=== PATIENT | female | born 1945 | race Caucasian/White ===

== ENCOUNTER → 2017-02-19 | Outpatient (CLI) | payer MEDICARE ==
[2017-02-19 12:20] LABS: CH 29.1; CHCM 32.1; HCT 46.6 % (34.0-46.0); HDW 2.58; HGB 15.8 gm/dL (11.4-16.0); MCH 30.9 pg (25.0-35.0); MCHC 33.9 g/dL (31.0-37.0); MCV 91.1 fL (80.0-100.0); Mean Platelet Volume 7.4; RBC 5.12 m/uL (3.80-5.40); RDW 15.2 % (11.5-15.5); WBC 16.7 k/uL (3.8-10.6)
[2017-02-19 12:38] LABS: Anion Gap 10 mmol/L; Blood Urea Nitrogen 18 mg/dL (7-17); Carbon Dioxide 23 mmol/L (22-30); Chloride 107 mmol/L (98-107); Non-African American GFR(MDRD) >60 (>60 ml/min/1.73 sqM); Potassium 4.4 mmol/L (3.5-5.1); Sodium 140 mmol/L (137-145)
== END | disposition home or self-care (01) ==
LOC: LABPAT 11:46
PROVIDERS: ATTEND Internal Medicine Interventional Cardiology
DX: Z01.812 Encounter for preprocedural laboratory examination (principal); I73.9 Peripheral vascular disease, unspecified
CPT/HCPCS: 80051; 82565; 84520; 85027

== ENCOUNTER 2017-02-24 06:28 | Inpatient (IN) | payer MEDICARE ==
[2017-02-19 14:07] VITALS: BMI 40.9
[~2017-02-24 06:28] MED LIST: ALPRAZolam 0.25 MG TAB PO PRN; ASPIRIN 325 MG TAB PO STA; SODIUM CHLORIDE 0.9% 1,000 ML in EMPTY BAG 1 BAG IV ONE
[2017-02-24] MEDS ORDERED: MIDAZOLAM 2 MG/2 ML VIAL IV ONE (07:51)
[2017-02-24] MEDS ORDERED: ENALAPRILAT 1.25 MG/ML 1 ML VIAL IV ONE (07:56)
[2017-02-24] MEDS ORDERED: LIDOCAINE 2% INJ 20 MG/ML SQ ONE (07:56)
[2017-02-24] MEDS: hydrALAZINE HCL 20 MG/ML 1 ML VIAL IV ONE ×2 (08:01→08:10)
[2017-02-24] MEDS ORDERED: IODIXANOL 320 MG/ML 100 ML INTRAARTER ONE (08:10)
[2017-02-24] MEDS ORDERED: METOPROLOL TARTRATE 5 MG/5 ML VIAL IVP ONE ×2 (08:24→12:17)
[2017-02-24] MEDS ORDERED: SODIUM CHLORIDE 0.9% 1,000 ML IV SCH ×2 (08:30→14:15)
[2017-02-24] MEDS ORDERED: FUROSEMIDE 10 MG/ML 4 ML VIAL IV ONE (08:31)
[2017-02-24] MEDS ORDERED: hydrALAZINE HCL 20 MG/ML 1 ML VIAL IVP STA ×2 (09:12→11:01)
[2017-02-24] MEDS ORDERED: hydrALAZINE HCL 20 MG/ML 1 ML VIAL ONE (09:14)
--- NOTE | 2017-02-24 10:47 | IR ---
Fluoroscopy HISTORY: Peripheral vascular disease with left leg 1.7 minutes fluoroscopy time supplied to the referring clinician. 206 intraoperative C-arm images do cument the procedure. See dictated report from cardiology.
[2017-02-24] MEDS ORDERED: ENALAPRILAT 1.25 MG/ML 1 ML VIAL IVP STA (11:01)
--- NOTE | 2017-02-24 12:39 | PCN ---
DATE OF SERVICE: February 24, 2017 PERFORMING PHYSICIAN: Reyes Cazares MD, litharge mill operator. PROCEDURE PERFORMED: 1. Abdominal aortogram. 2. Bilateral lower extremity runoff. INDICATIONS: This is a very pleasant 72-year-old female patient who sees Dr. José Miguel Hassan as an outpatient who was experiencing critical limb ischemia and nonhealing ulcer involving the left foot. She was brought today for peripheral angiogram. She underwent an arterial duplex study and that came in to be abnormal. APPROACH: Right common femoral artery. COMPLICATIONS: None. LEVEL OF SEDATION: Moderate. The sedation length 17 minutes. PROCEDURE DESCRIPTION: After obtaining an informed consent, the patient was brought to the cardiac agriculture laborer. The right common femoral artery was cannulated using micropuncture technique and the micropuncture wire passed easily then I placed a 5 Tristanian sheath in the right common femoral artery. Subsequently, I did an abdominal aortogram and bilateral lower extremity runoff. Using 5 Tristanian pigtail catheter, which was initially placed at the level of the renal arteries then it was pulled into above the bifurcation of the aorta to right and left common iliac arteries. The procedure was completed without any complication. SELECTIVE PERIPHERAL ANGIOGRAM: 1. The aorta has mild disease only. 2. Common iliac arteries: The right and left common iliac arteries are angiographically normal. 3. Internal iliac arteries: The right and left internal iliac arteries are patent. 4. External iliac arteries: The right external iliac arteries appear to have mild disease only and the left external iliac artery appeared to have a tight lesion just above the inguinal ligament. The lesion seems to be in the range of 70% to 80%. 5. Common femoral arteries: The right and left common femoral arteries appear to have mild disease only. 6. SFA: The right SFA is patent and the left SFA is occluded in the proximal portion and reconstitutes just in the distal portion. 7. Popliteal: The right and left popliteal appear to have mild disease only. 8. Below the knee: There are 3 vessels runoff below the knee bilaterally. CONCLUSION: 1. 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 2. Occluded left superficial femoral artery in the proximal portion and reconstitutes in the mid portion. POSTPROCEDURE MANAGEMENT: LABOR SUPERVISOR of the left external iliac artery and subsequently LABOR SUPERVISOR of the left SFA. [facility]
[2017-02-24] MEDS ORDERED: cloNIDine HCL 0.1 MG TAB PO STA ×2 (12:53→13:27)
[2017-02-24] MEDS ORDERED: amLODIPine 5 MG TAB PO STA (13:25)
[2017-02-24] MEDS ORDERED: HYDROmorphone 1 MG/ML 1 ML SYRINGE IVP STA (13:28)
[2017-02-24] MEDS ORDERED: LOSARTAN 50 MG TAB PO ONE (13:45)
[2017-02-24] MEDS ORDERED: FUROSEMIDE 10 MG/ML 2 ML VIAL IV ONE (13:46)
[2017-02-24] MEDS ORDERED: HYDROmorphone 1 MG/ML 1 ML SYRINGE IVP ONE (23:58)
[2017-02-25] MEDS ORDERED: RX INFO: IV CONTRAST WAS GIVEN 1 EACH MISC MISCELLANE PRN (06:49)
[2017-02-25 08:39] LABS: ALT 25 U/L (9-52); AST 23 U/L (14-36); Alkaline Phosphatase 172 U/L (38-126); Anion Gap 11 mmol/L; Blood Urea Nitrogen 25 mg/dL (7-17); Calcium 8.7 mg/dL (8.4-10.2); Carbon Dioxide 25 mmol/L (22-30); Chloride 106 mmol/L (98-107); Glucose 94 mg/dL (74-99); Non-African American GFR(MDRD) >60 (>60 ml/min/1.73 sqM); Potassium 3.9 mmol/L (3.5-5.1); Sodium 142 mmol/L (137-145); Total Bilirubin 1.8 mg/dL (0.2-1.3); Total Protein 6.8 g/dL (6.3-8.2)
[2017-02-25] MEDS ORDERED: methylPREDNISolone SOD SUCCI 125 MG/2 ML VIAL IV ONE (10:30)
[2017-02-25] MEDS ORDERED: FAMOTIDINE 20 MG/2 ML VIAL IV ONE (10:30)
[2017-02-25] MEDS ORDERED: diphenhydrAMINE 50 MG/ML 1 ML VIAL IVP ONE (10:30)
--- NOTE | 2017-02-25 11:57 | CT ---
EXAMINATION TYPE: CT angio chest DATE OF EXAM: 02/25/2017 COMPARISON: NONE HISTORY: SOB, pain CT DLP: 456.8 mGycm Automated exposure control for dose reduction was used. CONTRAST: CTA scan of the thorax is performed with IV Contrast, patient injected with 100 mL of Omnipaque 350, pulmonary embolism protocol. MIP images are created and reviewed. 3D reconstructed images are creat ed on an independent workstation and reviewed. FINDINGS: LUNGS: The lungs are remarkable for abnormal increased attenuation which is pleural-based in the left upper lobe, some prominence of interstitium also present in the left upper lobe and lingula. Right l amy shows emphysematous changes, some increased density present in the right middle lobe is pleural-b ased anteriorly in the right measuring approximately 12 mm. Right lower lobe lung nodule on image 73 measures 8 mm. Left lower lobe nodularity also seen, image #85 and 86, subcentimeter nodule noted. In terstitial changes also noted on the right. There is a small left pleural effusion. The tracheobronc hial tree is patent. AORTA: No additional significant abnormality is seen. MEDIASTINUM: There is satisfactory enhancement of the pulmonary artery and its branches, there is no CT evidence for pulmonary embolism. There are abnormal nodes in the prevascular space, retrocaval pr etracheal mediastinal nodes are enlarged, there is bilateral hilar, subcarinal adenopathy. Pulmonary artery is prominent. There are coronary artery calcifications, calcification along the aorta. No pe ricardial effusion is seen. OTHER: No additional significant abnormality is seen. Findings could represent metastatic disease, bronchogenic carcinoma. Consider pulmonary artery hypert ension, centrilobular emphysema change is present. Coronary artery disease, small left pleural effusi on. IMPRESSION:
[2017-02-25] MEDS ORDERED: FUROSEMIDE 40 MG TAB PO PRN (15:03)
[2017-02-25] MEDS ORDERED: FAMOTIDINE 20 MG TAB PO PRN (15:03)
[2017-02-25] MEDS ORDERED: ALBUTEROL NEBULIZED 2.5 MG/3 ML INHALATION PRN (15:03)
[2017-02-25] MEDS ORDERED: predniSONE 20 MG TAB PO PRN (15:03)
[2017-02-25] MEDS ORDERED: hydrOXYzine HCL 25 MG TAB PO PRN (15:03)
[2017-02-25] MEDS: cloNIDine HCL 0.1 MG TAB PO SCH ×2 (15:50→23:39)
[2017-02-25] MEDS: LOSARTAN 50 MG TAB PO SCH ×2 (15:50→21:40)
[2017-02-25] MEDS ORDERED: amLODIPine 5 MG TAB PO STA (18:54)
[2017-02-25] MEDS ORDERED: METOPROLOL SUCCINATE (ER) 100 MG TAB.ER.24H PO SCH (19:00)
[2017-02-25] MEDS ORDERED: LEVOFLOXACIN 500MG-D5W PMX 500 MG in DEXTROSE/WATER 1 100ML.BAG IVPB SCH (20:00)
[2017-02-25] MEDS ORDERED: BUDESONIDE 1 MG/2 ML NEBU INHALATION SCH (21:00)
[2017-02-25] MEDS ORDERED: diphenhydrAMINE 25 MG CAP PO SCH (21:00)
[2017-02-25] MEDS ORDERED: MONTELUKAST 10 MG TAB PO SCH (21:00)
[2017-02-25] MEDS: BUDESONIDE 0.5 MG/2 ML NEBU INHALATION SCH (21:21)
[2017-02-25] MEDS: DULoxetine HCL 30 MG CAPSULE.DR PO SCH (21:40)
[2017-02-25] MEDS: TIMOLOL 0.5% OPHTH DROPS 5 ML BTL BOTH EYES SCH (21:40)
[2017-02-26] MEDS ORDERED: HYDROmorphone 1 MG/ML 1 ML SYRINGE IVP PRN (03:07)
[2017-02-26 07:27] LABS: CH 29.1; CHCM 32.6; HCT 52.3 % (34.0-46.0); HDW 2.55; HGB 17.3 gm/dL (11.4-16.0); MCH 29.6 pg (25.0-35.0); MCV 89.6 fL (80.0-100.0); Mean Platelet Volume 7.2; RBC 5.84 m/uL (3.80-5.40); RDW 14.9 % (11.5-15.5); WBC (Perox) 30.16
[2017-02-26 07:36] LABS: WBC 29.8 k/uL (3.8-10.6)
[2017-02-26] MEDS: BUDESONIDE 0.5 MG/2 ML NEBU INHALATION SCH (07:43)
--- NOTE | 2017-02-26 08:22 | P.DS ---
Providers Date of admission: February 242016 Attending physician: Reyes Cazares Consults: 02/25/17 15:42 Consult Physician Routine Consulting Provider: Juan Hassan Consult Reason/Comments: abnormal ct Do you want consulting provider notified?: Yes Primary care physician: Stated None Hospital Course: This is a pleasant 72-year-old female patient who was admitted to the hospital 2 days ago to undergo a peripheral angiogram. The patient is a patient of Dr. JUDY Hassan who was experiencing severe left leg discomfort consistent with intermittent claudication.. She underwent a peripheral angiogram and that showed an occluded left SFA from the ostium and reconstitutes by the left popliteal. Postprocedure the patient developed hypertension required multiple doses of IV hydralazine as well as IV Vasotec. Subsequently she was hypoxic requiring 2 L of oxygen. Pulmonary consult was placed yesterday and the patient was diagnosed with a pneumonia and she was kept overnight. On follow-up with her today she is feeling better. The white count is elevated. We are still awaiting for the pulmonary follow-up on her today. If the patient is stable from the pulmonary standpoint of view, she can be discharged home. Plan - Discharge Summary New Discharge Prescriptions: Continue diphenhydrAMINE [Benadryl] 25 mg PO HS Nitroglycerin Sl Tabs [Nitrostat] 0.4 mg SL Q5M PRN PRN Reason: Chest Pain Metoprolol Succinate (ER) [Toprol XL] 100 mg PO 1900 Betaxolol HCl [Betoptic S 0.5% Ophth Soln] 1 drop BOTH EYES BID Aspirin 325 mg PO DAILY cloNIDine HCL [Catapres] 0.1 mg PO TID Furosemide [Lasix] 40 mg PO DAILY PRN PRN Reason: leg swelling Budesonide [Pulmicort] 0.5 mg INHALATION BID hydrOXYzine HCL [Atarax] 25 mg PO Q6HR PRN PRN Reason: Itching Losartan [Cozaar] 50 mg PO DAILY Albuterol Sulfate [Proair Hfa] 1 - 2 puff INHALATION Q6HR PRN PRN Reason: sob diphenhydrAMINE [Benadryl] 25 mg PO Q4H PRN PRN Reason: hives ALPRAZolam [Xanax] 0.25 mg PO DAILY PRN PRN Reason: hives Montelukast Sodium [Singulair] 10 mg PO HS DULoxetine HCL [Cymbalta] 30 mg PO BID predniSONE 20 mg PO DIRECTED PRN PRN Reason: Allergic Reaction Ranitidine HCl [Zantac] 150 mg PO DIRECTED PRN PRN Reason: Allergic Reaction Discharge Medication List Aspirin 325 mg PO DAILY 02/14/14 [History] Betaxolol HCl [Betoptic S 0.5% Ophth Soln] 1 drop BOTH EYES BID 02/14/14 [ History] Metoprolol Succinate (ER) [Toprol XL] 100 mg PO 1900 02/14/14 [History] Nitroglycerin Sl Tabs [Nitrostat] 0.4 mg SL Q5M PRN 02/14/14 [History] cloNIDine HCL [Catapres] 0.1 mg PO TID 02/14/14 [History] diphenhydrAMINE [Benadryl] 25 mg PO HS 02/14/14 [History] Budesonide [Pulmicort] 0.5 mg INHALATION BID 08/15/14 [History] Furosemide [Lasix] 40 mg PO DAILY PRN 08/15/14 [History] Losartan [Cozaar] 50 mg PO DAILY 08/15/14 [History] hydrOXYzine HCL [Atarax] 25 mg PO Q6HR PRN 08/15/14 [History] ALPRAZolam [Xanax] 0.25 mg PO DAILY PRN 02/19/17 [History] Albuterol Sulfate [Proair Hfa] 1 - 2 puff INHALATION Q6HR PRN 02/19/17 [History] DULoxetine HCL [Cymbalta] 30 mg PO BID 02/19/17 [History] Montelukast Sodium [Singulair] 10 mg PO HS 02/19/17 [History] diphenhydrAMINE [Benadryl] 25 mg PO Q4H PRN 02/19/17 [History] Ranitidine HCl [Zantac] 150 mg PO DIRECTED PRN 02/24/17 [History] predniSONE 20 mg PO DIRECTED PRN 02/24/17 [History] Follow up Appointment(s)/Referral(s): Reyes Cazares MD [STAFF PHYSICIAN] - 1 Week Juan Hassan MD [STAFF PHYSICIAN] - 07/18/17 3:45 pm Activity/Diet/Wound Care/Special Instructions: Oxygen ordered through [facility]: #[phone]
[2017-02-26] MEDS ORDERED: amLODIPine 5 MG TAB PO SCH (09:00)
[2017-02-26] MEDS ORDERED: ASPIRIN 325 MG TAB PO SCH (09:00)
[2017-02-26] MEDS: DULoxetine HCL 30 MG CAPSULE.DR PO SCH (09:40)
[2017-02-26] MEDS: cloNIDine HCL 0.1 MG TAB PO SCH (09:40)
[2017-02-26] MEDS: TIMOLOL 0.5% OPHTH DROPS 5 ML BTL BOTH EYES SCH (09:41)
[2017-02-26] MEDS: LOSARTAN 50 MG TAB PO SCH (09:41)
[2017-02-26 10:17] LABS: Add Differential Manual Differential
[2017-02-26 10:20] LABS: Manual Review Performed; Metamyelocytes % 0.5 %; Nucleated Red Blood Cells 0 /100 WBC (0-0); Total Cells Counted 200
[2017-02-26 10:21] LABS: Toxic Granulation Present
[2017-02-26 11:38] VITALS: BP 176/63; PULSE 58; RESP 17; TEMP 98.6
--- NOTE | 2017-02-26 12:36 | CONS ---
Della Gregory is a 72-year-old female who presented to the hospital on 2016. She underwent abdominal aortogram with bilateral lower extremity runoff. She had been having pleuritic chest pain that started on 02/21/2017. She felt somewhat weak at the time. No clear fever or chills. She had a CT scan done, which showed evidence of an extensive infiltrate in the left upper lobe and lingula with some lymphadenopathy as well. She has a known history of CLL. Her past medical history is positive for asthma, COPD, coronary artery disease, status post coronary angioplasty, history of peripheral vascular disease, history of nicotine dependence, history of alcohol abuse. Family history is noncontributory. Patient is allergic to AZITHROMYCIN, CEDAR WOOD, CLINDAMYCIN, GUAIFENESIN, IODINATED CONTRAST, ZOSYN, BEE VENOM, WASP VENOM, ATORVASTATIN, BORAX, CHLORIDE , CLOROX, OXI-CLEAN. Medications prior to admission were Betoptic, Xanax, Benadryl, Atarax, Catapres , Lasix, Zantac, prednisone, metoprolol, budesonide, nitroglycerine sublingual, albuterol, diphenhydramine, montelukast, duloxetine, losartan, aspirin and I believe budesonide in the nebulizer. REVIEW OF SYSTEMS: Positive for obesity. On physical examination, blood pressure 156/78, respiratory rate 20, pulse rate 88, temperature 98.2. HEENT reveals pupils are equal. Chest reveals bronchovascular breath sounds in the left upper zone anteriorly and posteriorly as well. Cardiovascular system reveals an S1, S2. No S3, no S4. A short systolic murmur. Abdomen is soft. There is 1+ pedal edema. Sodium is 142, potassium 3.9, chloride 106, bicarb 25, BUN 25, creatinine 0.83. Bilirubin 1.8. Alk phos 172. Recent white blood cell count on 02/19/2017 was 16.7 thousand with a hemoglobin of 15.8 and 7.5 thousand neutrophils with 8.2 thousand lymphocytes and 1.[address] scan of the chest was personally reviewed by me, which shows evidence of extensive infiltrate in the left upper lobe including the lingula. There is increased attenuation that is pleural based in the left upper lobe as well. There are some emphysematous changes with some increased density in the right middle lobe, pleural based small nodule on the right lower lobe and left lower lobe nodularity as well. There are small lymph nodes in the prevascular retrocaval area as well and bilateral hilar subcarinal adenopathy, which she has previously had from apparently her CLL. IMPRESSION AT THIS TIME: 1. Left upper lobe pneumonia is likely as a cause of her left-sided pleuritic chest pain. 2. Hypoxemia in part due to chronic obstructive pulmonary disease, but in part due to shunting from her left upper lobe pneumonitis. 3. Malignancy is lower on the list. 4. Chronic lymphocytic leukemia, which may have predisposed her to pneumonia. 5. Peripheral vascular disease. At this point in time from a pulmonary standpoint, keep her on supplemental oxygen, continue bronchodilators and aerosolized steroids and Singulair. Would add Levaquin to her regimen. Check blood cultures. Increase her activity level. She may require home oxygen. Depending on how she does, we shall make further changes to her care. NIKKI
--- NOTE | 2017-02-26 14:20 | P.PN ---
Subjective Principal diagnosis: Hypoxia Patient seen today resting comfortably. She was ambulated with and without oxygen and oxygen saturation dropped to 86% without oxygen subsequently she will require oxygen around the clock at home. She states that she's feeling little bit better today. She's had no productive cough, no nausea vomiting or diarrhea. She did have abdominal aortogram completed and findings of severe disease involving left external iliac artery and occluded left superficial femoral artery and proximal portion and reconstitutes in the midportion per Dr. Shukla. Patient's being discharged today. Pain is somewhat better. She does have elevated white count which is most likely related to her CLL and steroids. She should follow-up with Dr. Hassan in 1 week's time Objective - Vital Signs Vital signs: Vital Signs Temp 98.6 F 02/26/17 11:35 Pulse 58 L 02/26/17 11:35 Resp 17 02/26/17 11:35 BP 176/63 02/26/17 11:35 Pulse Ox 92 L 02/26/17 11:35 Intake & Output 02/25/17 02/26/17 02/26/17 18:59 06:59 18:59 Intake Total 600 240 Balance 600 240 Intake: Intake, IV Titration 100 Amount Levofloxacin 500Mg-D5w 100 Pmx 500 mg In Dextrose/ Water 1 100ml.bag @ 100 mls/hr IVPB Q24H [facility] Rx#: [id number] Oral 500 240 Other: Voiding Method Indwelling Catheter Toilet # Voids 1 2 - Constitutional General appearance: Present: cooperative, no acute distress - EENT Eyes: Present: anicteric sclerae, PERRLA Ears: bilateral: normal - Neck Neck: Present: normal ROM - Respiratory Respiratory: bilateral: CTA, diminished - Cardiovascular Rhythm: regular Heart sounds: normal: S1, S2 - Gastrointestinal General gastrointestinal: Present: normal bowel sounds, soft - Integumentary Integumentary Comment(s): red, discolored, +1 edema - Neurologic Neurologic: Present: CNII-XII intact - Psychiatric Psychiatric: Present: A&O x's 3 - Labs CBC & Chem 7: 02/26/17 06:34 02/25/17 07:07 Labs: Abnormal Lab Results - Last 24 Hours (Table) 02/26/17 Range/Units 06:34 WBC 29.8 H* (3.8-10.6) k/uL RBC 5.84 H (3.80-5.40) m/uL Hgb 17.3 H (11.4-16.0) gm/dL Hct 52.3 H (34.0-46.0) % Neutrophils # (Manual) 19.5 H (1.3-7.7) k/uL Lymphocytes # (Manual) 8.2 H (1.0-4.8) k/uL Monocytes # (Manual) 1.9 H (0-1.0) k/uL Assessment and Plan Plan: Assessment and plan: Hypoxia will need oxygen at home at 2 L nasal cannula around the clock and follow-up with Dr. Allie Hassan in 1 week Dyspnea where she'll continue with steroids, Singulair, Pulmicort and albuterol Hypertension where she'll continue with medications as ordered CAD with a history of [facility] where she'll continue to follow with cardiology Hyperlipidemia she follows with cardiology PAD recent abdominal aortogram with results as noted above CLL where she follows with Dr. Henson
--- NOTE | 2017-02-26 16:57 | PN ---
Mrs. Gregory is feeling better today. She has bronchitis and probably pneumonia, was seen by Dr. Albaro Hassan yesterday. She has been initiated on antibiotics. She feels better. Vital signs are stable. S1, S2 heard normally. Lungs reveal improved air entry. Abdomen and lower extremity exam unchanged. She will be discharged home today and she will follow with Dr. Albaro Hassan and Dr. Cazares. She will be on home oxygen for a short while. She sill be arranged by Dr. Albaro Hassan. From a cardiac standpoint, she is stable and her peripheral arterial disease issue will be addressed by Dr. Cazares upon her office visit and she will have intervention performed. NIKKI
== END 2017-02-26 14:29 | disposition home or self-care (01) | DRG 190 ==
LOC: CATHCVL 06:28 → 3OBS 08:10 → CATHCVL 02-26 12:25
PROVIDERS: ADMIT Internal Medicine Interventional Cardiology; ATTEND Internal Medicine Interventional Cardiology
PROC: B41DYZZ Fluoroscopy of Aorta and Bilateral Lower Extremity Arteries using Other Contrast (ICD-10-PCS; principal; 2017-02-24 07:30)
DX: J44.0 Chronic obstructive pulmonary disease with (acute) lower respiratory infection (principal); J18.9 Pneumonia, unspecified organism; C91.10 Chronic lymphocytic leukemia of B-cell type not having achieved remission; L97.529 Non-pressure chronic ulcer of other part of left foot with unspecified severity; E66.01 Morbid (severe) obesity due to excess calories; E78.5 Hyperlipidemia, unspecified; I10 Essential (primary) hypertension; I25.10 Atherosclerotic heart disease of native coronary artery without angina pectoris; I73.9 Peripheral vascular disease, unspecified; I99.8 Other disorder of circulatory system; R09.02 Hypoxemia; I77.9 Disorder of arteries and arterioles, unspecified; J45.909 Unspecified asthma, uncomplicated; F17.210 Nicotine dependence, cigarettes, uncomplicated; Z88.1 Allergy status to other antibiotic agents; Z88.8 Allergy status to other drugs, medicaments and biological substances; Z91.041 Radiographic dye allergy status; Z79.82 Long term (current) use of aspirin; Z79.899 Other long term (current) drug therapy; Z95.5 Presence of coronary angioplasty implant and graft
CPT/HCPCS: 36200; 71275; 75625; 75716; 80053; 85025; 87040; 94640

== ENCOUNTER → 2017-03-17 | Outpatient (CLI) | payer MEDICARE ==
[2017-03-17 08:43] LABS: Anion Gap 9 mmol/L; Blood Urea Nitrogen 27 mg/dL (7-17); Carbon Dioxide 25 mmol/L (22-30); Chloride 107 mmol/L (98-107); Non-African American GFR(MDRD) >60 (>60 ml/min/1.73 sqM); Potassium 4.3 mmol/L (3.5-5.1); Sodium 141 mmol/L (137-145)
[2017-03-17 09:23] LABS: CH 28.6; CHCM 31.3; HCT 49.4 % (34.0-46.0); HDW 2.43; MCH 29.8 pg (25.0-35.0); MCHC 32.4 g/dL (31.0-37.0); MCV 91.8 fL (80.0-100.0); Mean Platelet Volume 7.6; RBC 5.38 m/uL (3.80-5.40); RDW 14.7 % (11.5-15.5); WBC 18.9 k/uL (3.8-10.6)
== END | disposition home or self-care (01) ==
LOC: LABPAT 07:27
PROVIDERS: ATTEND Internal Medicine Interventional Cardiology
DX: Z01.812 Encounter for preprocedural laboratory examination (principal); I73.9 Peripheral vascular disease, unspecified
CPT/HCPCS: 80051; 82565; 84520; 85027

== ENCOUNTER → 2017-03-17 | Outpatient (CLI) | payer MEDICARE ==
--- NOTE | 2017-03-17 07:45 | CT ---
EXAMINATION TYPE: CT chest wo con DATE OF EXAM: 03/17/2017 COMPARISON: CT thorax dated 02/25/2017. HISTORY: Follow up to abn CT. Pleural-based left upper lobe opacity. CT DLP: 469.1 mGycm. Automated Exposure Control for Dose Reduction was Utilized. TECHNIQUE: CT scan of the thorax is performed without IV contrast. FINDINGS: LUNGS: There is overall improvement in the degree of consolidation and interseptal lobular thickening within the left upper lobe. The previous wedge-shaped consolidation on the exam of 02/25/2017 measuri ng at least 4.7 x 6.2 cm has significantly decreased in size measuring 2.0 x 3.8 cm on series 4 image 17. This is again located within the left upper lobe, pleural-based with irregular margins and a nod ular component at the inferior aspect on image 19. There is near complete resolution of the previousl y seen interseptal lobular thickening. A second small groundglass opacity is seen just posterior medi al to the larger consolidation on the same image. Minimal left basilar subsegmental atelectasis is seen as well as mild left hemidiaphragm elevation, s imilar to the prior exam. There is also the appearance of decrease in size in the right lower lobe pu lmonary nodule which may be partially due to differences in technique and slice selection, however th is pulmonary nodule appears to measure 4 mm and previously measured 8 mm seen on image 30, series 4. The left lower lobe nodularity has also decreased in the interim now measuring 5 mm. Findings are sup erimposed upon a background of mild to moderate centrilobular emphysematous changes. Additionally wit hin the right lower lobe on image 27 there is a solid 4 mm pulmonary nodule, unchanged. Minimal depen dent right lower lobe subsegmental atelectasis is noted. Degree of right middle lobe atelectasis has also decreased. There is no pleural effusion or pneumothorax seen. The previously seen trace left ple ural effusion has resolved in the interim. The tracheobronchial tree is patent. MEDIASTINUM: Lack of IV contrast is noted to limit evaluation for mediastinal and especially hilar ad enopathy. However, given this limitation there is overall decrease in degree of adenopathy in compari son to the prior exam with the largest lymph node seen in the precarinal space now measuring 1.2 cm i n short axis. Calcific atheromatous changes are seen of the thoracic aorta and there is dense three-v essel coronary artery atherosclerosis. No cardiomegaly or pericardial effusion is seen. OTHER: No additional significant abnormality is seen. Cholecystectomy clips are noted within the gal lbladder fossa. Mild degenerative changes are appreciated of the visualized thoracic spine. No suspic ious osseous lesions. IMPRESSION: 1. Overall interval improvement with decreasing size of the left upper lobe consolidation, near compl ete resolution of the interseptal lobular thickening, decrease in degree of mediastinal/hilar adenopa thy and decrease in size of 2 lower lobe pulmonary nodules. Although findings favor resolving infecti ous/inflammatory etiology, underlying neoplasm is not yet excluded in the remaining consolidation wit h irregular margins. Short-term follow-up CT is again recommended to assure complete resolution. 2. Solid 4 mm right lower lobe pulmonary nodule, which can also be reassessed on the above recommende d follow-up CT. 3. Resolution of the previously seen trace left pleural effusion.
== END ==
LOC: RADCTMAIN 07:03
PROVIDERS: ATTEND Internal Medicine Pulmonary Disease
DX: R91.1 Solitary pulmonary nodule (principal); R91.8 Other nonspecific abnormal finding of lung field; R05 Cough
CPT/HCPCS: 71250

== ENCOUNTER 2017-03-19 08:17 | Inpatient (IN) | payer MEDICARE ==
[2017-03-14 09:56] VITALS: BMI 39.1
[~2017-03-19 08:17] MED LIST changes: -ALPRAZolam 0.25 MG TAB PO PRN; -ASPIRIN 325 MG TAB PO STA
[2017-03-19] MEDS ORDERED: SODIUM CHLORIDE 0.9% 1,000 ML IV ONE (11:04)
[2017-03-19] MEDS ORDERED: LIDOCAINE 2% INJ 20 MG/ML SQ ONE (11:12)
[2017-03-19] MEDS: MIDAZOLAM 2 MG/2 ML VIAL IVP ONE ×2 (11:15→12:10)
[2017-03-19] MEDS ORDERED: HEPARIN SODIUM 1,000 UN/ML (10ML VL) IV ONE (11:17)
[2017-03-19] MEDS ORDERED: HYDROmorphone 2 MG/ML 1 ML SYRINGE IVP ONE (11:20)
[2017-03-19] MEDS ORDERED: METOPROLOL TARTRATE 5 MG/5 ML VIAL IVP ONE (11:53)
[2017-03-19] MEDS: hydrALAZINE HCL 20 MG/ML 1 ML VIAL IVP ONE ×2 (11:53→12:07)
[2017-03-19] MEDS: NITROGLYCERIN 1000MCG/10ML SYRINGE INTRAARTER ONE ×3 (11:55→12:29)
[2017-03-19] MEDS ORDERED: fentaNYL (PF) 50 MCG/ML 2 ML AMP IVP ONE (12:10)
[2017-03-19] MEDS ORDERED: niCARdipine Syringe (1,000 mcg/10 mL) INTRAARTER ONE (12:30)
[2017-03-19] MEDS ORDERED: CLOPIDOGREL 75 MG TAB PO ONE (12:52)
[2017-03-19] MEDS ORDERED: hydrALAZINE HCL 20 MG/ML 1 ML VIAL IVP ONE (12:53)
[2017-03-19] MEDS ORDERED: ENALAPRILAT 1.25 MG/ML 1 ML VIAL IVP ONE (12:53)
[2017-03-19] MEDS ORDERED: IODIXANOL 320 MG/ML 100 ML INTRAARTER ONE (12:55)
[2017-03-19] MEDS ORDERED: FUROSEMIDE 40 MG TAB PO PRN (13:02)
[2017-03-19] MEDS ORDERED: ALPRAZolam 0.25 MG TAB PO PRN (13:02)
[2017-03-19] MEDS ORDERED: FAMOTIDINE 20 MG TAB PO PRN (13:02)
[2017-03-19] MEDS ORDERED: hydrOXYzine HCL 25 MG TAB PO PRN (13:02)
[2017-03-19] MEDS ORDERED: diphenhydrAMINE 25 MG CAP PO PRN (13:02)
[2017-03-19] MEDS ORDERED: NITROGLYCERIN-D5W PMX 50 MG in DEXTROSE/WATER 1 250ML.BAG IV ONE (13:13)
[2017-03-19] MEDS ORDERED: SODIUM CHLORIDE 0.9% 1,000 ML IV SCH (13:15)
[2017-03-19] MEDS ORDERED: diphenhydrAMINE 50 MG/ML 1 ML VIAL IVP ONE (13:16)
[2017-03-19 13:33] LABS: Glucose,Whole Blood 139 mg/dL (75-99)
[2017-03-19] MEDS: cloNIDine HCL 0.1 MG TAB PO SCH ×2 (15:00→22:41)
[2017-03-19] MEDS: hydrALAZINE HCL 50 MG TAB PO SCH ×2 (15:00→22:41)
[2017-03-19] MEDS ORDERED: METOPROLOL SUCCINATE (ER) 100 MG TAB.ER.24H PO SCH (19:00)
[2017-03-19] MEDS: LOSARTAN 50 MG TAB PO SCH (20:41)
[2017-03-19] MEDS: amLODIPine 5 MG TAB PO SCH (20:41)
[2017-03-19] MEDS: BUDESONIDE 0.5 MG/2 ML NEBU INHALATION SCH (20:42)
[2017-03-19] MEDS ORDERED: MONTELUKAST 10 MG TAB PO SCH (21:00)
[2017-03-19] MEDS ORDERED: diphenhydrAMINE 25 MG CAP PO SCH (21:00)
[2017-03-19] MEDS: DULoxetine HCL 30 MG CAPSULE.DR PO SCH (21:32)
[2017-03-19] MEDS: TIMOLOL 0.5% OPHTH DROPS 5 ML BTL BOTH EYES SCH (21:32)
[2017-03-20 04:22] LABS: CH 29.3; CHCM 31.6; HCT 49.3 % (34.0-46.0); HGB 15.5 gm/dL (11.4-16.0); MCH 29.2 pg (25.0-35.0); MCHC 31.4 g/dL (31.0-37.0); MCV 93.1 fL (80.0-100.0); Mean Platelet Volume 7.7; RBC 5.29 m/uL (3.80-5.40); RDW 15.9 % (11.5-15.5)
[2017-03-20 04:34] LABS: Anion Gap 9 mmol/L; Blood Urea Nitrogen 25 mg/dL (7-17); Calcium 8.6 mg/dL (8.4-10.2); Carbon Dioxide 19 mmol/L (22-30); Chloride 111 mmol/L (98-107); Glucose 85 mg/dL (74-99); Magnesium 1.8 mg/dL (1.6-2.3); Non-African American GFR(MDRD) >60 (>60 ml/min/1.73 sqM); Phosphorous 3.5 mg/dL (2.5-4.5); Sodium 139 mmol/L (137-145)
[2017-03-20 04:36] LABS: WBC 27.1 k/uL (3.8-10.6)
[2017-03-20] MEDS ORDERED: Magnesium Replacement Protocol 1 EACH MISC MISCELLANE PRN (04:40)
[2017-03-20] MEDS: MAGNESIUM SULFATE-D5W PMX 1 GM in DEXTROSE/WATER 1 100ML.BAG IVPB SCH ×2 (05:44→06:30)
[2017-03-20] MEDS: BUDESONIDE 0.5 MG/2 ML NEBU INHALATION SCH (07:19)
[2017-03-20] MEDS: amLODIPine 5 MG TAB PO SCH (08:00)
[2017-03-20] MEDS: DULoxetine HCL 30 MG CAPSULE.DR PO SCH (08:00)
[2017-03-20] MEDS: hydrALAZINE HCL 50 MG TAB PO SCH (08:00)
[2017-03-20] MEDS: LOSARTAN 50 MG TAB PO SCH (08:01)
[2017-03-20] MEDS ORDERED: amLODIPine 5 MG TAB PO SCH (09:00)
[2017-03-20] MEDS ORDERED: CLOPIDOGREL 75 MG TAB PO SCH (09:00)
[2017-03-20] MEDS ORDERED: ASPIRIN 325 MG TAB PO SCH (09:00)
[2017-03-20] MEDS ORDERED: predniSONE 20 MG TAB PO SCH (09:00)
[2017-03-20 09:13] VITALS: TEMP 98.6
[2017-03-20 09:14] VITALS: BP 116/45; PULSE 59; RESP 19
--- NOTE | 2017-03-20 09:54 | PCN ---
PERCUTANEOUS PERIPHERAL INTERVENTION DATE OF PROCEDURE: 03/19/2017 PERFORMING PHYSICIAN: Reyes Cazares MD, intervention science interpreter. PROCEDURE PERFORMED: 1. Selective left below the knee angiogram. 2. Selective left SFA angiogram. 3. Selective left external iliac artery angiogram. 4. An atherectomy of the left superficial femoral artery. 5. Successful balloon angioplasty of the left superficial femoral artery. 6. Successful stenting of the very proximal left superficial femoral artery using self-expandable stent with a good angiographic result. 7. Successful stenting of the left external iliac artery using self-expandable stent with a good angiographic result. 8. Selective right common femoral artery angiogram. 9. IVUS of the left SFA. INDICATION: This is a pleasant 72-year-old female patient who sees Dr. José Miguel Hassan as an outpatient who was experiencing left leg discomfort related to severe PAD. She underwent a peripheral angiogram a few weeks go and that showed occluded left SFA with severe disease involving the left external iliac artery. She was brought today to undergo a HANDICRAFT OR HOBBY SHOP MANAGER of the left SFA and left external iliac artery. APPROACH: Right common femoral artery. COMPLICATION: None. LEVEL OF SEDATION: Moderate with a sedation length of 1 hour and 42 minutes. PROCEDURE DESCRIPTION: After obtaining an informed consent, the patient was brought to the cardiac propagator laborer. The right common femoral artery was cannulated using micropuncture technique, the micropuncture wire passed easily then I placed a short 11 cm 6 Malaysian sheath in the right common femoral artery. Subsequently, I did start anticoagulation using heparin and the patient was given a total of 10,000 units of heparin IV. Subsequently, I did select the left profunda using an 0.035 advantage wire with a 5 Malaysian rim catheter. After that I did exchange my 11 cm 6 Malaysian sheath into 55 cm 6 Malaysian sheath over the advantage wire. The tip of the long 55, 6- Malaysian Raabe sheath was positioned in the left common iliac artery. After that, I did balloon angioplasty of the left external iliac artery using 7 mm balloon which was inflated under 8 atmospheres for about 1 minute. That was enough for me to gain lumen so I can pass the sheath across it. I did not want to put the stent at this stage because I was going to advance the sheath across the stent and I was worried about the stent migration because of the sheath. After that, I did advance my 6-Malaysian 55 cm Raabe sheath to the left common femoral artery. Subsequently, I was able to cross the chronic total occlusion of the left SFA using an 0.018 ( ) Glidewire with a backup support of 0.018 Quick-Cross catheter. After that, I advanced the Quick-Cross catheter to the distal left SFA and I pulled the wire out then I injected through catheter to prove that I was in the true lumen of the left SFA. After that, I did exchange my 0.018 ( ) Glidewire into a ViperWire using the 0.018 Quick-Cross catheter. After that, I did multiple runs of orbital atherectomy using the CSI device. I did atherectomy for the left SFA. Subsequently, I did intravascular ultrasound, IVUS , of the left SFA to check the severity of the disease in the mid portion as well as to check for sizing of the left SFA. The mid left SFA was severely diseased and the proximal portion was measured about 6 mm. After that, I did cutting balloon of the proximal left SFA using the AngioSculpt , which was 6 mm balloon, which was inflated under its nominal pressure for 1 minute. Then I did balloon angioplasty of the left SFA using 5 mm and 6 mm balloon. The following angiogram showed good angiographic results in the mid SFA with dissection involving the very proximal, which was chronic total occlusion segment. At that point, I decided to cover that with a stent so I took 7 x 40 self-expandable stent where the stent was positioned under fluoroscopy guidance and deployed after that. The following angiogram showed good angiographic results. Subsequently, I did pull the sheath proximal to the lesion in the left external iliac artery and I did deploy 8.0 x 40 mm another self-expandable stent where the stent was positioned again under fluoroscopy guidance and deployed. The following angiogram showed good angiographic results. Following that, I did exchange by 55 cm 6 Malaysian Raabe sheath into 11 cm 6 Malaysian sheath using the advantage wire. Subsequently, I did selective right common femoral artery angiogram before I deployed the Perclose device. The procedure was completed without any complication. POSTPROCEDURE MANAGEMENT: 1. Dual antiplatelet therapy. 2. Risk factor modifications. 3. Follow up with the patient. NIKKI
[2017-03-20] MEDS: cloNIDine HCL 0.1 MG TAB PO SCH (10:13)
[2017-03-20] MEDS: TIMOLOL 0.5% OPHTH DROPS 5 ML BTL BOTH EYES SCH (11:13)
--- NOTE | 2017-03-20 14:53 | IR ---
Fluoroscopy HISTORY: Pain 24.7 minutes fluoroscopy time supplied to the referring clinician. 436 intraoperative C-arm images d ocument the procedure. See dictated report from cardiology.
[2017-03-20] MEDS ORDERED: ATORVASTATIN 40 MG TAB PO SCH (21:00)
[2017-03-21] MEDS ORDERED: CLOPIDOGREL 75 MG TAB PO SCH (09:00)
--- NOTE | 2017-03-25 12:01 | DS ---
ADMISSION DATE: 03/19/2017 DISCHARGE DATE: 03/20/2017 BRIEF HISTORY: This is a pleasant 72-year-old female patient who was admitted to the hospital yesterday and underwent successful stenting of the left external iliac artery and left superficial femoral artery with a good angiographic result and without any complication. The procedure was performed from the right groin, which is soft and nontender and without any bruises. The patient is going to be discharged home on dual antiplatelet therapy and statin. I will follow up with the patient as an outpatient in the office. NIKKI
== END 2017-03-20 12:50 | disposition home or self-care (01) | DRG 272 ==
LOC: CATHCVL 08:17 → 6SEL 12:45 → 6ICU 13:17 → CATHCVL 13:36 → 6ICU 13:36
PROVIDERS: ADMIT Internal Medicine Interventional Cardiology; ATTEND Internal Medicine Interventional Cardiology
PROC: 047L3ZZ Dilation of Left Femoral Artery, Percutaneous Approach (ICD-10-PCS; 2017-03-19)
PROC: B44GZZ3 Ultrasonography of Left Lower Extremity Arteries, Intravascular (ICD-10-PCS; 2017-03-19)
PROC: B41F1ZZ Fluoroscopy of Right Lower Extremity Arteries using Low Osmolar Contrast (ICD-10-PCS; 2017-03-19)
PROC: B41C1ZZ Fluoroscopy of Pelvic Arteries using Low Osmolar Contrast (ICD-10-PCS; 2017-03-19)
PROC: B41G1ZZ Fluoroscopy of Left Lower Extremity Arteries using Low Osmolar Contrast (ICD-10-PCS; 2017-03-19)
PROC: 04CL3ZZ Extirpation of Matter from Left Femoral Artery, Percutaneous Approach (ICD-10-PCS; principal; 2017-03-19 10:55)
PROC: 047J3DZ Dilation of Left External Iliac Artery with Intraluminal Device, Percutaneous Approach (ICD-10-PCS; 2017-03-19 10:55)
PROC: 047L3DZ Dilation of Left Femoral Artery with Intraluminal Device, Percutaneous Approach (ICD-10-PCS; 2017-03-19 10:55)
DX: I70.202 Unspecified atherosclerosis of native arteries of extremities, left leg (principal); J44.9 Chronic obstructive pulmonary disease, unspecified; I65.29 Occlusion and stenosis of unspecified carotid artery; I10 Essential (primary) hypertension; I77.89 Other specified disorders of arteries and arterioles; F17.210 Nicotine dependence, cigarettes, uncomplicated; E78.5 Hyperlipidemia, unspecified; E78.00 Pure hypercholesterolemia, unspecified; I25.10 Atherosclerotic heart disease of native coronary artery without angina pectoris; Z79.82 Long term (current) use of aspirin; Z79.899 Other long term (current) drug therapy; Z88.1 Allergy status to other antibiotic agents; Z91.030 Bee allergy status; Z91.041 Radiographic dye allergy status; Z88.5 Allergy status to narcotic agent; Z88.8 Allergy status to other drugs, medicaments and biological substances; Z91.048 Other nonmedicinal substance allergy status; Z95.5 Presence of coronary angioplasty implant and graft; Z82.49 Family history of ischemic heart disease and other diseases of the circulatory system
CPT/HCPCS: 37220; 37227; 37252; 71250; 80048; 83735; 84100; 85027; 94640

== ENCOUNTER → 2017-05-19 | Outpatient (CLI) | payer MEDICARE ==
--- NOTE | 2017-05-19 10:59 | CT ---
EXAMINATION TYPE: CT chest wo con DATE OF EXAM: 05/19/2017 COMPARISON: NONE HISTORY: Shortness of breath, h/o COPD CT DLP: [address] of the chest was performed with lung and mediastinal window settings submitted. The la ck of contrast limits evaluation of the vascular, mediastinal and parenchymal structures including th e upper abdomen. LUNGS: Left upper lobe infiltrate has resolved. There is a postinflammatory change within the left up per lobe at this time. No new infiltrates are seen. No evidence of pulmonary mass. MEDIASTINUM/OG: Thoracic aorta is of normal caliber with limited evaluation given lack of contrast . The heart is mildly enlarged. No evidence for mediastinal mass. Continued improvement in mediasti nal adenopathy. A superior right paratracheal tracheal lymph node measures 1.3 cm with a low right paratracheal lymph node measuring 1.1 cm. There is also improving hilar adenopathy. UPPER ABDOMEN: No significant abnormality is seen. OTHER: No significant other abnormality. IMPRESSION: 1. Resolution of left upper lobe infiltrate with residual postinflammatory change. Improving mediast inal and hilar adenopathy.
== END | disposition home or self-care (01) ==
LOC: RADCTMAIN 09:27
PROVIDERS: ATTEND Internal Medicine Pulmonary Disease
DX: R59.0 Localized enlarged lymph nodes (principal); R06.02 Shortness of breath; R05 Cough
CPT/HCPCS: 71250

== ENCOUNTER → 2018-03-20 | Outpatient (CLI) | payer MEDICARE ==
[2018-03-20 13:40] LABS: Potassium 4.5 mmol/L (3.5-5.1)
[2018-03-20 14:04] LABS: HCT 45.2 % (34.0-46.0); HGB 14.8 gm/dL (11.4-16.0); MCH 29.6 pg (25.0-35.0); MCHC 32.7 g/dL (31.0-37.0); MCV 90.4 fL (80.0-100.0); Mean Platelet Volume 7.2; Platelet Count 253 k/uL (150-450); RBC 5.01 m/uL (3.80-5.40); RDW 15.2 % (11.5-15.5); WBC 24.4 k/uL (3.8-10.6)
== END | disposition home or self-care (01) ==
LOC: LABPAT 12:55
PROVIDERS: ATTEND Internal Medicine Interventional Cardiology
DX: Z01.812 Encounter for preprocedural laboratory examination (principal); I73.9 Peripheral vascular disease, unspecified
CPT/HCPCS: 36415; 80051; 82565; 84520; 85027

== ENCOUNTER 2018-03-23 09:17 | Day surgery (SDC) | payer MEDICARE ==
[~2018-03-23 09:17] MED LIST changes: +ALPRAZolam 0.25 MG TAB PO PRN; +ASPIRIN 325 MG TAB PO STA
[2018-03-23] MEDS ORDERED: SODIUM CHLORIDE 0.9% 1,000 ML IV ONE (10:12)
[2018-03-23 10:17] VITALS: TEMP 97.5
[2018-03-23 10:22] LABS: Basophils # (A) 0.1 k/uL (0-0.2); Basophils % (A) 0 %; Eosinophils % (A) 0 %; HCT 45.9 % (34.0-46.0); Lymphocytes % (A) 41 %; MCH 29.4 pg (25.0-35.0); MCHC 32.6 g/dL (31.0-37.0); MCV 90.3 fL (80.0-100.0); Monocytes # (A) 0.4 k/uL (0-1.0); Monocytes % (A) 2 %; Neutrophils # (A) 11.6 k/uL (1.3-7.7); Neutrophils % (A) 53 %; Platelet Count 264 k/uL (150-450); RBC 5.09 m/uL (3.80-5.40); RDW 15.7 % (11.5-15.5); WBC 21.9 k/uL (3.8-10.6)
[2018-03-23 10:36] LABS: Calcium 9.4 mg/dL (8.4-10.2)
[2018-03-23 10:37] LABS: Potassium 4.7 mmol/L (3.5-5.1)
[2018-03-23] MEDS ORDERED: MIDAZOLAM 2 MG/2 ML VIAL IV ONE (11:06)
[2018-03-23] MEDS: LIDOCAINE 1% INJ 10MG/ML (20 ML MDV) SQ ONE ×2 (11:07→11:10)
[2018-03-23] MEDS ORDERED: fentaNYL (PF) 50 MCG/ML 2 ML AMP IV ONE (11:14)
[2018-03-23] MEDS ORDERED: IOPAMIDOL-250 100ML BTL INTRAARTER ONE (11:20)
[2018-03-23] MEDS ORDERED: IOPAMIDOL-250 50ML BTL INTRAARTER ONE (11:21)
[2018-03-23] MEDS ORDERED: hydrALAZINE HCL 20 MG/ML 1 ML VIAL IVP STA (11:47)
[2018-03-23] MEDS: hydrALAZINE HCL 20 MG/ML 1 ML VIAL ONE ×2 (11:48→11:50)
[2018-03-23] MEDS ORDERED: SODIUM CHLORIDE 0.9% 1,000 ML IV SCH (12:30)
[2018-03-23] MEDS ORDERED: hydrALAZINE HCL 20 MG/ML 1 ML VIAL IVP PRN (12:38)
[2018-03-23] MEDS ORDERED: FUROSEMIDE 10 MG/ML 4 ML VIAL IV STA (12:40)
--- NOTE | 2018-03-23 14:08 | LTR ---
March 23, [address] Reid: Ms. Della Interiano underwent a peripheral angiogram today for critical limb ischemia that was diagnosed recently. The angiogram revealed critical disease involving the right femoral artery. The patient will be scheduled to undergo a balloon angioplasty of the right femoral artery in the next few days. Thank you for allowing me to participate in her care and please do not hesitate to call if you have any question or concern. MMODL / IJN: [id number] /
[2018-03-23] MEDS ORDERED: METOPROLOL TARTRATE 5 MG/5 ML VIAL IVP PRN (14:27)
[2018-03-23] MEDS ORDERED: METOPROLOL TARTRATE 5 MG/5 ML VIAL IVP ONE (14:28)
--- NOTE | 2018-03-23 15:14 | AN ---
ANGIOGRAPHY REPORT DATE OF SERVICE: March 23, 2018 PERFORMING PHYSICIAN: Reyes Cazares MD, paraprofessional aide. PROCEDURE PERFORMED: 1. Abdominal aortogram. 2. Bilateral lower extremities runoff. INDICATIONS: This is a pleasant 73-year-old female patient who sees Dr. José Miguel Hassan in the office as an outpatient with known peripheral arterial disease who underwent in the past stenting of the left SFA and left iliac, which was an external iliac was recently diagnosed with critical limb ischemia of bilateral legs. She was seen by Dr. Holcomb who recommended proceeding with an abdominal aortogram and bilateral lower extremity runoff. APPROACH: Right common femoral artery. COMPLICATION: None. LEVEL OF SEDATION: Moderate with sedation length of 13 minutes. PROCEDURE DESCRIPTION: After obtaining an informed consent, the patient was brought to the cardiac hatchery laborer. The right common femoral artery was cannulated using micropuncture technique, the micropuncture wire passed easily. Then I placed a 5-Stateless sheath in the right common femoral artery. After that, I did an abdominal aortogram and bilateral lower extremities runoff using 5-Stateless pigtail catheter which was initially placed at the level of the renal arteries then it was pulled into above the bifurcation of the aorta to right and left common iliac arteries. The procedure was completed without any complication. SELECTIVE PERIPHERAL ANGIOGRAM: 1. The aorta appeared to have mild disease only. It bifurcates into right and left common iliac arteries. 2. Common iliac arteries: The right and left common iliac arteries appeared to have mild disease only. 3. Internal iliac arteries: The right and left internal are patent. 4. External iliac arteries: The stent in the left external iliac artery is patent and the right external iliac artery appeared to be angiographically normal. 5. Common femoral arteries: The right and left common femoral arteries are patent. 6. Profunda: The right and left profunda are patent. 7. SFA: The right SFA has a critical lesion in the proximal portion about 90% and the left SFA appeared to have mild to moderate diffuse disease. The stent in the proximal left SFA is patent as well. 8. Popliteal: The right and left popliteal appeared to be angiographically normal. 9. Below the knee: Poorly visualized arteries below the knee seen bilaterally. CONCLUSION: 1. Patent stent in the left external iliac artery. 2. Patent stent in the left SFA. 3. Critical disease involving the right SFA. POSTPROCEDURE MANAGEMENT: NURSING PROGRAM CHAIR of the right SFA to be done as an outpatient. MMBLANEL / IJN: [id number] /
[2018-03-23] MEDS ORDERED: fentaNYL (PF) 50 MCG/ML 2 ML AMP ONE (15:17)
[2018-03-23] MEDS ORDERED: MIDAZOLAM 2 MG/2 ML VIAL ONE (15:18)
[2018-03-23] MEDS ORDERED: MIDAZOLAM 2 MG/2 ML VIAL IV STA (15:25)
[2018-03-23] MEDS ORDERED: LOSARTAN 50 MG TAB PO STA (16:36)
[2018-03-23] MEDS ORDERED: HYDROmorphone 0.5 MG/0.5 ML SYRINGE IVP STA (17:55)
[2018-03-23] MEDS ORDERED: cloNIDine HCL 0.1 MG TAB PO STA (17:55)
[2018-03-23] MEDS ORDERED: HYDROmorphone 1 MG/ML 1 ML SYRINGE ONE (17:57)
[2018-03-23] MEDS ORDERED: HYDROmorphone 1 MG/ML 1 ML SYRINGE IVP STA (18:00)
[2018-03-23] MEDS ORDERED: diphenhydrAMINE 25 MG CAP PO PRN (19:28)
[2018-03-23] MEDS ORDERED: ALBUTEROL NEBULIZED 2.5 MG/3 ML INHALATION PRN (19:28)
[2018-03-23] MEDS ORDERED: FAMOTIDINE 20 MG TAB PO PRN (19:28)
[2018-03-23] MEDS ORDERED: hydrOXYzine HCL 25 MG TAB PO PRN (19:28)
[2018-03-23] MEDS ORDERED: ALPRAZolam 0.25 MG TAB PO PRN (19:28)
[2018-03-23] MEDS ORDERED: predniSONE 20 MG TAB PO PRN (19:28)
[2018-03-23 19:47] VITALS: BMI 42.7
[2018-03-23] MEDS: BUDESONIDE 1 MG/2 ML NEBU INHALATION SCH (20:02)
[2018-03-23] MEDS: TIMOLOL 0.5% OPHTH DROPS 5 ML BTL BOTH EYES SCH (20:36)
[2018-03-23] MEDS: DULoxetine HCL 30 MG CAPSULE.DR PO SCH (20:37)
[2018-03-23] MEDS: cloNIDine HCL 0.1 MG TAB PO SCH (20:37)
[2018-03-23] MEDS: LOSARTAN 50 MG TAB PO SCH (20:37)
[2018-03-23] MEDS ORDERED: METOPROLOL SUCCINATE (ER) 100 MG TAB.ER.24H PO SCH (21:00)
[2018-03-23] MEDS ORDERED: MONTELUKAST 10 MG TAB PO SCH (21:00)
[2018-03-24 04:16] VITALS: RESP 16
[2018-03-24 07:49] VITALS: BP 143/78
[2018-03-24] MEDS: BUDESONIDE 1 MG/2 ML NEBU INHALATION SCH ×2 (08:25→09:29)
[2018-03-24] MEDS: TIMOLOL 0.5% OPHTH DROPS 5 ML BTL BOTH EYES SCH (08:49)
[2018-03-24] MEDS: LOSARTAN 50 MG TAB PO SCH (08:49)
[2018-03-24] MEDS: DULoxetine HCL 30 MG CAPSULE.DR PO SCH (08:49)
[2018-03-24] MEDS: cloNIDine HCL 0.1 MG TAB PO SCH (08:49)
[2018-03-24] MEDS ORDERED: METOLAZONE 5 MG TAB PO SCH (09:00)
[2018-03-24] MEDS ORDERED: FUROSEMIDE 40 MG TAB PO SCH (09:00)
[2018-03-24] MEDS ORDERED: ASPIRIN 81 MG PO SCH (09:00)
[2018-03-24] MEDS ORDERED: CLOPIDOGREL 75 MG TAB PO SCH (09:00)
[2018-03-24] MEDS ORDERED: POTASSIUM CHLORIDE ER 10 MEQ TAB.ER.PRT PO SCH (09:00)
[2018-03-24 09:32] VITALS: PULSE 55
== END 2018-03-24 11:55 | disposition hospice, home (50) ==
LOC: CATHCVL 09:17 → 3OBS 11:20 → CATHCVL 03-24 11:55
PROVIDERS: ATTEND Internal Medicine Interventional Cardiology
DX: I73.9 Peripheral vascular disease, unspecified (principal); I99.8 Other disorder of circulatory system; J45.901 Unspecified asthma with (acute) exacerbation; J44.9 Chronic obstructive pulmonary disease, unspecified; I10 Essential (primary) hypertension; E78.5 Hyperlipidemia, unspecified; G47.33 Obstructive sleep apnea (adult) (pediatric); I25.10 Atherosclerotic heart disease of native coronary artery without angina pectoris; E78.00 Pure hypercholesterolemia, unspecified; F17.210 Nicotine dependence, cigarettes, uncomplicated; Z79.82 Long term (current) use of aspirin; Z79.02 Long term (current) use of antithrombotics/antiplatelets; Z79.899 Other long term (current) drug therapy
CPT/HCPCS: 94640 ×2; 36200; 75625; 75716; 80048; 85025; C1894; C1769 ×3; J2250; J0360; J1940; J2001; J3010; J1170; Q9966 ×2

== ENCOUNTER → 2018-04-17 | Outpatient (CLI) | payer MEDICARE ==
[2018-04-17 14:30] LABS: HCT 46.5 % (34.0-46.0); HGB 14.7 gm/dL (11.4-16.0); MCH 30.1 pg (25.0-35.0); MCHC 31.7 g/dL (31.0-37.0); MCV 95.2 fL (80.0-100.0); Mean Platelet Volume 6.9; Platelet Count 245 k/uL (150-450); RBC 4.88 m/uL (3.80-5.40); RDW 15.3 % (11.5-15.5); WBC 23.1 k/uL (3.8-10.6)
[2018-04-17 14:44] LABS: Potassium 4.2 mmol/L (3.5-5.1)
== END | disposition home or self-care (01) ==
LOC: LABPAT 13:33
PROVIDERS: ATTEND Internal Medicine Interventional Cardiology
DX: Z01.812 Encounter for preprocedural laboratory examination (principal); I73.9 Peripheral vascular disease, unspecified
CPT/HCPCS: 36415; 80051; 82565; 84520; 85027

== ENCOUNTER 2018-04-23 09:59 | Day surgery (SDC) | payer MEDICARE ==
[~2018-04-23 09:59] MED LIST changes: -SODIUM CHLORIDE 0.9% 1,000 ML in EMPTY BAG 1 BAG IV ONE
[2018-04-23] MEDS ORDERED: SODIUM CHLORIDE 0.9% 500 ML IV ONE (11:15)
[2018-04-23] MEDS ORDERED: IV FLUID CONTINUATION 1,000 ML IV ONE (11:30)
[2018-04-23] MEDS: MIDAZOLAM 2 MG/2 ML VIAL IV ONE ×2 (11:32→12:07)
[2018-04-23] MEDS ORDERED: fentaNYL (PF) 50 MCG/ML 2 ML AMP IV ONE (11:37)
[2018-04-23] MEDS ORDERED: LIDOCAINE 1% INJ 10MG/ML (20 ML MDV) SQ ONE ×2 (11:37→11:50)
[2018-04-23] MEDS: hydrALAZINE HCL 20 MG/ML 1 ML VIAL IV ONE ×2 (11:38→12:17)
[2018-04-23] MEDS ORDERED: ENALAPRILAT 1.25 MG/ML 1 ML VIAL IV ONE (11:40)
[2018-04-23] MEDS ORDERED: hydrOXYzine HCL 25 MG TAB PO PRN (12:30)
[2018-04-23] MEDS ORDERED: diphenhydrAMINE 25 MG CAP PO PRN (12:30)
[2018-04-23] MEDS ORDERED: ALPRAZolam 0.25 MG TAB PO PRN (12:30)
[2018-04-23] MEDS ORDERED: hydrALAZINE HCL 20 MG/ML 1 ML VIAL IVP PRN (12:30)
[2018-04-23] MEDS ORDERED: NITROGLYCERIN SL TABS 0.4 MG TAB SUBLINGUAL PRN (12:30)
[2018-04-23] MEDS ORDERED: IOPAMIDOL-250 100ML BTL INTRAARTER ONE (12:33)
[2018-04-23] MEDS ORDERED: SODIUM CHLORIDE 0.9% 1,000 ML IV SCH (12:45)
--- NOTE | 2018-04-23 14:42 | LTR ---
April 23, [address] Reid: Ms. Della Interiano underwent successful balloon angioplasty and stenting of the right femoral artery with good angiographic results and reduction of stenosis from 90% to 0%. Thank you for allowing us to participate in her care and please do not hesitate to call if you have any questions or concerns. MMODL / IJN: [id number] /
--- NOTE | 2018-04-23 14:55 | IR ---
Fluoroscopy HISTORY: Peripheral vascular occlusive disease 10.4 minutes fluoroscopy time supplied to the referring clinician. 319 intraoperative C-arm images d ocument the procedure. See dictated report from cardiology.
[2018-04-23] MEDS ORDERED: HYDROmorphone 1 MG/ML 1 ML SYRINGE IVP PRN (15:19)
[2018-04-23] MEDS ORDERED: amLODIPine 5 MG TAB ONE (15:21)
[2018-04-23] MEDS ORDERED: METOPROLOL TARTRATE 5 MG/5 ML VIAL IVP ONE (15:21)
[2018-04-23] MEDS ORDERED: METOLAZONE 5 MG TAB PO SCH (16:00)
[2018-04-23 17:43] VITALS: BMI 43.0
[2018-04-23] MEDS ORDERED: traMADol 50 MG TAB PO STA (17:52)
[2018-04-23] MEDS: traMADol 50 MG TAB PO SCH ×2 (18:02→21:55)
--- NOTE | 2018-04-23 18:03 | AN ---
ANGIOGRAPHY REPORT DATE OF SERVICE: 04/23/2018 PERFORMING PHYSICIAN: Reyes Cazares MD, jewelry setter. PROCEDURES PERFORMED: 1. Selective right [id number] angiogram. 2. Selective right SFA angiogram. 3. Atherectomy of the right SFA using the TurboHawk atherectomy device with extraction of significant amount of plaque. 4. Balloon angioplasty of the right SFA using a 6 mm drug-coated balloon with inadequate angiographic results. 5. Successful stenting of the right SFA proximally using 6 x 80 mm Zilver PTX drug- coated stent with excellent angiographic results. 6. Selective left common femoral artery angiogram. INDICATION: This is a pleasant 73-year-old female patient who sees Dr. Nile Hassan as an outpatient who was experiencing critical limb ischemia and nonhealing wounds involving the dejesus bilaterally. She follows with Dr. Mullen. She underwent an abdominal aortogram and bilateral lower extremity runoff and that revealed patent stent in the left external iliac artery and patent stent in the left SFA with critical disease involving the right SFA. She was brought today to undergo HAND SEWER SHOES of the right SFA. APPROACH: Left common femoral artery. COMPLICATIONS: None. LEVEL OF SEDATION: Moderate with sedation length of 48 minutes. PROCEDURE DESCRIPTION: After obtaining informed consent, the patient was brought to the cardiac oil field laborer. The left common femoral artery was cannulated using micropuncture technique. The micropuncture wire passed easily. Then I placed a 6-Algerian in the left common femoral artery. After that, I started anticoagulation with heparin. Subsequently I selected the right SFA using an .035 stiff Glidewire with a 5-Algerian RIM catheter. After that I exchanged my 11 cm sheath for a 6-Algerian 70 cm Raabe sheath. After that I exchanged my .035 wire for an .014 Whisper wire using .035 Quick-Cross catheter. Subsequently I did atherectomy of the right SFA using the TurboHawk device and I extracted significant amount of plaque. After that, I did balloon angioplasty using 5 mm balloon and subsequently 6 mm drug-coated balloon with the following angiogram showing dissection, seems to be spiral and also flow-limiting. Because of that, I decided to cover that stent, so I deployed a 6 x 80 mm Zilver PTX drug-coated stent where the stent was positioned under fluoroscopy guidance and deployed as well under fluoroscopy guidance. I post dilated the stent using 5 mm balloon. The following angiogram showed excellent angiographic results After that, I exchanged my 70 cm 6-Algerian sheath for an 11 cm 6-Algerian sheath over an .035 Glidewire. The procedure was completed without any complication. POST-PROCEDURE MANAGEMENT: 1. Dual anti-platelet therapy. 2. Risk factor modifications. 3. Follow up with the patient. MARINA / ELIF: [id number] /
[2018-04-23] MEDS: cloNIDine HCL 0.1 MG TAB PO SCH (20:21)
[2018-04-23] MEDS: LOSARTAN 50 MG TAB PO SCH (20:21)
[2018-04-23] MEDS: DULoxetine HCL 30 MG CAPSULE.DR PO SCH (20:21)
[2018-04-23] MEDS ORDERED: METOPROLOL SUCCINATE (ER) 100 MG TAB.ER.24H PO SCH (21:00)
[2018-04-23] MEDS ORDERED: MONTELUKAST 10 MG TAB PO SCH (21:00)
[2018-04-23] MEDS: BUDESONIDE 0.5 MG/2 ML NEBU INHALATION SCH (21:19)
[2018-04-23] MEDS: TIMOLOL 0.5% OPHTH DROPS 5 ML BTL BOTH EYES SCH (21:55)
[2018-04-23 23:07] LABS: HCT 41.2 % (34.0-46.0); HGB 12.8 gm/dL (11.4-16.0); MCH 29.5 pg (25.0-35.0); MCV 95.2 fL (80.0-100.0); Mean Platelet Volume 7.1; Platelet Count 251 k/uL (150-450); RBC 4.33 m/uL (3.80-5.40); RDW 15.9 % (11.5-15.5); WBC 32.6 k/uL (3.8-10.6)
[2018-04-23 23:16] LABS: Anion Gap 5 mmol/L; Blood Urea Nitrogen 24 mg/dL (7-17); Calcium 8.7 mg/dL (8.4-10.2); Carbon Dioxide 24 mmol/L (22-30); Chloride 110 mmol/L (98-107); Glucose 91 mg/dL (74-99); Potassium 3.8 mmol/L (3.5-5.1); Sodium 139 mmol/L (137-145)
[2018-04-24 01:24] LABS: Lymphocytes # (M) 21.19 k/uL (1.0-4.8); Monocytes # (M) 1.63 k/uL (0-1.0); Neutrophils # (M) 9.78 k/uL (1.3-7.7); Neutrophils % (M) 30 %; Nucleated Red Blood Cells 0 /100 WBC (0-0); Total Cells Counted 100
[2018-04-24 01:28] LABS: Anisocytosis (M) Present; Polychromasia Present
[2018-04-24 02:02] VITALS: RESP 18
[2018-04-24] MEDS: BUDESONIDE 0.5 MG/2 ML NEBU INHALATION SCH (08:02)
[2018-04-24 08:03] VITALS: BP 147/65; TEMP 97.6
[2018-04-24] MEDS ORDERED: FUROSEMIDE 40 MG TAB PO SCH (09:00)
[2018-04-24] MEDS ORDERED: CLOPIDOGREL 75 MG TAB PO SCH (09:00)
[2018-04-24] MEDS ORDERED: POTASSIUM CHLORIDE ER 10 MEQ TAB.ER.PRT PO SCH (09:00)
[2018-04-24] MEDS ORDERED: amLODIPine 5 MG TAB PO SCH (09:00)
[2018-04-24] MEDS ORDERED: ASPIRIN 81 MG PO SCH (09:00)
[2018-04-24] MEDS: cloNIDine HCL 0.1 MG TAB PO SCH (09:45)
[2018-04-24] MEDS: DULoxetine HCL 30 MG CAPSULE.DR PO SCH (09:46)
[2018-04-24] MEDS: LOSARTAN 50 MG TAB PO SCH (09:47)
[2018-04-24] MEDS: traMADol 50 MG TAB PO SCH (09:47)
[2018-04-24] MEDS: TIMOLOL 0.5% OPHTH DROPS 5 ML BTL BOTH EYES SCH (09:51)
[2018-04-24 10:37] VITALS: PULSE 49
--- NOTE | 2018-04-24 16:22 | DS ---
DISCHARGE SUMMARY DATE OF ADMISSION: 04/23/2018 DATE OF DISCHARGE: 04/24/2018 BRIEF HISTORY: This is a very pleasant 73-year-old female patient who sees Dr. Nile Hassan in the office as an outpatient with a past medical history significant for peripheral arterial disease who was diagnosed recently with evidence of critical limb ischemia. She underwent a peripheral angiogram and that revealed tight lesion involving the right SFA. She was admitted to the hospital yesterday and underwent an atherectomy and balloon angioplasty and stenting of the right SFA with good angiographic results and without any complication. The procedure was performed from the left groin. Her left groin is bruised, without any discrete hematoma, and seems to be almond cutting machine tender. I discussed with the patient the option of staying overnight one more night or going home today, and she would like to go home. The patient is going to be discharged home on dual anti-platelet therapy. She is intolerant to statin. MARINA / IRAMN: [id number] /
== END 2018-04-24 11:31 | disposition home or self-care (01) ==
LOC: CATHCVL 09:59 → 6SEL 14:57 → CATHCVL 04-24 11:31
PROVIDERS: ATTEND Internal Medicine Interventional Cardiology
DX: I73.89 Other specified peripheral vascular diseases (principal); L97.829 Non-pressure chronic ulcer of other part of left lower leg with unspecified severity; I70.213 Atherosclerosis of native arteries of extremities with intermittent claudication, bilateral legs; L97.819 Non-pressure chronic ulcer of other part of right lower leg with unspecified severity; I10 Essential (primary) hypertension; E78.5 Hyperlipidemia, unspecified; G47.33 Obstructive sleep apnea (adult) (pediatric); J44.9 Chronic obstructive pulmonary disease, unspecified; I25.10 Atherosclerotic heart disease of native coronary artery without angina pectoris; C91.10 Chronic lymphocytic leukemia of B-cell type not having achieved remission; F17.210 Nicotine dependence, cigarettes, uncomplicated; Z79.02 Long term (current) use of antithrombotics/antiplatelets; Z79.82 Long term (current) use of aspirin; Z79.51 Long term (current) use of inhaled steroids; Z79.52 Long term (current) use of systemic steroids; Z79.899 Other long term (current) drug therapy; Z88.1 Allergy status to other antibiotic agents; Z88.5 Allergy status to narcotic agent; Z88.0 Allergy status to penicillin; Z88.8 Allergy status to other drugs, medicaments and biological substances
CPT/HCPCS: 37227; 80048; 82565; 85025; 94640

== ENCOUNTER 2020-02-08 06:33 | Inpatient (IN) | payer MEDICARE ==
[2020-02-08] MEDS ORDERED: SODIUM CHLORIDE 0.9% 1,000 ML IV STA ×2 (07:05)
[2020-02-08] MEDS ORDERED: MORPHINE SULFATE 4 MG/ML SYRINGE IV STA (07:05)
--- NOTE | 2020-02-08 07:12 | ED ---
General Adult HPI - General Source: patient, RN notes reviewed, old records reviewed Mode of arrival: wheelchair Limitations: no limitations <Briana Smith - Last Filed: 02/08/20 09:28> <Nazario Gold - Last Filed: 02/08/20 09:56> - General Chief complaint: Extremity Problem,Nontraumatic Stated complaint: leg pain Time Seen by Provider: 02/08/20 06:45 - History of Present Illness Initial comments: Patient is a 74-year-old female presents weren't [place] today with worsening right leg pain. She has history of peripheral vascular disease and states that she is scheduled to have a angiography done on Friday with Dr. Cazares. Patient reports that she was unable to sleep the past night with worsening severe pain. Patient states that she is on Plavix for anticoagulation. Patient had a stent placed in the right knee in 2018. She also states that she has been treated for cellulitis over the past few months and is not on any current oral antibiotics. (Briana Smith) - Related Data Home Medications Medication Instructions Recorded Confirmed Betaxolol HCl [Betoptic S 0.5% 1 drop BOTH EYES BID 02/14/14 04/23/18 Ophth Soln] Metoprolol Succinate (ER) [Toprol 100 mg PO HS 02/14/14 04/23/18 XL] cloNIDine HCL [Catapres] 0.1 mg PO BID 02/14/14 04/23/18 Budesonide [Pulmicort] 0.5 mg INHALATION RT-BID 08/15/14 04/23/18 Furosemide [Lasix] 40 mg PO DAILY 08/15/14 04/23/18 Losartan [Cozaar] 50 mg PO BID 08/15/14 04/23/18 hydrOXYzine HCL [Atarax] 25 mg PO Q6HR PRN 08/15/14 04/15/18 ALPRAZolam [Xanax] 0.25 mg PO DAILY PRN 02/19/17 04/23/18 Albuterol Sulfate [Proair Hfa] 1 - 2 puff INHALATION RT-Q6H PRN 02/19/17 04/15/18 DULoxetine HCL [Cymbalta] 30 mg PO BID 02/19/17 04/23/18 Montelukast Sodium [Singulair] 10 mg PO HS 02/19/17 04/23/18 diphenhydrAMINE [Benadryl] 25 mg PO Q4H PRN 02/19/17 04/23/18 Aspirin [Adult Low Dose Aspirin EC] 81 mg PO QAM 03/13/18 04/23/18 Clopidogrel [Plavix] 75 mg PO QAM 03/13/18 04/23/18 Metolazone [Zaroxolyn] 5 mg PO Q2D 03/13/18 04/23/18 Potassium Chloride [Klor-Con 10] 10 meq PO QAM 03/13/18 04/23/18 Nitroglycerin Sl Tabs [Nitrostat] 0.4 mg SUBLINGUAL Q5M PRN 04/15/18 04/15/18 traMADol HCl [Ultram] 50 mg PO Q6HR PRN 04/23/18 04/23/18 Previous Rx's Medication Instructions Recorded amLODIPine [Norvasc] 5 mg PO DAILY #90 tab 04/24/18 Allergies Allergy/AdvReac Type Severity Reaction Status Date / Time azithromycin Allergy HIVES Verified 02/08/20 09:23 cedarwood [Cedarwood] Allergy HIVES Verified 02/08/20 09:23 clindamycin Allergy Rash/Hives Verified 02/08/20 09:23 guaifenesin [From Robitussin] Allergy Rash/Hives Verified 02/08/20 09:23 Iodinated Contrast Media Allergy HIVES, Verified 02/08/20 09:23 [Iodinated Contrast Media - ITCHIING IV Dye] piperacillin sodium Allergy HIVES Verified 02/08/20 09:23 [From Zosyn] tazobactam sodium Allergy HIVES Verified 02/08/20 09:23 [From Zosyn] venom-honey bee Allergy Anaphylaxis Verified 02/08/20 09:23 [bee venom (honey bee)] venom-wasp [Wasp Venom] Allergy Anaphylaxis Verified 02/08/20 09:23 atorvastatin AdvReac SEVERE Verified 02/08/20 09:23 MUSCLE CRAMPING codeine AdvReac Hallucinati Verified 02/08/20 09:23 ons latex AdvReac Rash/Hives Verified 02/08/20 09:23 ANTIBACTERIAL SOAP Allergy HIVES Uncoded 04/15/18 16:45 BORAX Allergy HIVES Uncoded 08/29/18 16:45 chloride Allergy Rash/Hives Uncoded 04/15/18 16:45 chlorox Allergy Rash/Hives Uncoded 04/15/18 16:45 OXI-CLEAN Allergy HIVES Uncoded 04/15/18 16:45 PURIFIED WATER AdvReac SEVERE Uncoded 04/15/18 16:45 COUGHING Review of Systems ROS Other: All systems not noted in ROS Statement are negative. <Briana Smith - Last Filed: 02/08/20 09:28> ROS Other: All systems not noted in ROS Statement are negative. <Nazario Gold - Last Filed: 02/08/20 09:56> ROS Statement: Those systems with pertinent positive or pertinent negative responses have been documented in the HPI. Past Medical History Past Medical History: Asthma, Cancer, Chest Pain / Angina, Eye Disorder, Hearing Disorder / Deafness, Hyperlipidemia, Hypertension, Neurologic Disorder, Osteoarthritis (OA), Pneumonia, Skin Disorder, Sleep Apnea/CPAP/BIPAP Additional Past Medical History / Comment(s): HX CHRONIC BACK PAIN, DX CLL-STAGE I-08/2013,ENLARGED LYMPH NODES in chest, GLAUCOMA, BILAT TINNITIS, OpticMIGRAINES, BRONCHITIS, Cellulitis bilat legs Uses O2 2L nc prn and for sleep, chronic leukemia-lymphitis History of Any Multi-Drug Resistant Organisms: None Reported Past Surgical History: Appendectomy, Back Surgery, Cholecystectomy, Heart Catheterization, Heart Catheterization With Stent, Hysterectomy, Orthopedic Surgery, Tonsillectomy Additional Past Surgical History / Comment(s): COLONOSCOPY, LT FOOT SURGERY HEEL SPUR/BUNIONECTOMY,CATARACT IMPLANTS,CENTER OF BACK(HAS CAGE), LOWER BACK HAS(PLATE AND SCREWS) 2017 stent left leg, recent aortogram. lt leg Past Anesthesia/Blood Transfusion Reactions: Previous Problems w/ Anesthesia Additional Past Anesthesia/Blood Transfusion Reaction / Comment(s): CLAUSTROPHOBIC Date of Last Stent Placement:: 2006 Past Psychological History: Anxiety, Depression Smoking Status: Current every day smoker Past Alcohol Use History: None Reported Past Drug Use History: None Reported - Past Family History Father Family Medical History: Cancer, Myocardial Infarction ([place]) Mother Family Medical History: Coronary Artery Disease (CAD), Deep Vein Thrombosis (DVT) Additional Family Medical History / Comment(s): CABG-4 vessel <Briana Smith - Last Filed: 02/08/20 09:28> General Exam Limitations: no limitations General appearance: alert, in no apparent distress Head exam: Present: atraumatic, normocephalic, normal inspection Eye exam: Present: normal appearance, PERRL, EOMI. Absent: scleral icterus, conjunctival injection, periorbital swelling ENT exam: Present: normal exam, mucous membranes moist Neck exam: Present: normal inspection. Absent: tenderness, meningismus, lymphadenopathy Respiratory exam: Present: normal lung sounds bilaterally. Absent: respiratory distress, wheezes, rales, rhonchi, stridor Cardiovascular Exam: Present: regular rate, normal rhythm, normal heart sounds. Absent: systolic murmur, diastolic murmur, rubs, gallop, clicks GI/Abdominal exam: Present: soft Extremities exam: Present: normal inspection, full ROM, normal capillary refill, other (Patient has bilateral peripheral edema and erythema. Evidence of abrasions and healing scab-like wounds of her anterior shins bilaterally. Patient has dorsalis pedis and posterior tibial pulse also dictated bilaterally on Doppler.). Absent: tenderness, pedal edema, joint swelling, calf tenderness Back exam: Present: normal inspection Neurological exam: Present: alert, oriented X3, CN II-XII intact <Briana Smith - Last Filed: 02/08/20 09:28> - General Exam Comments Initial Comments: 74 year old female, oriented 3. (Briana Smith) Course <Nazario Gold - Last Filed: 02/08/20 09:56> Vital Signs 02/08/20 06:39 Temperature 97.9 F Pulse Rate 91 Respiratory 22 Rate Blood Pressure 153/79 O2 Sat by Pulse 95 Oximetry - Reevaluation(s) Reevaluation #1: 02/08/20 09:55 PA supervision: I proceeded [id number] evaluation the patient did present with complaints of chills with right leg pain. He does have evidence of chronic stasis changes in both lower extremities over the right leg is warm to the touch with evidence of increased erythema compared to the left. Patient will be admitted with consultation by infectious disease doctor Sheet did call back. (Nazario Gold) Medical Decision Making - Lab Data Result diagrams: 02/08/20 07:05 02/08/20 07:05 - Radiology Data Radiology results: report reviewed <Briana Smith - Last Filed: 02/08/20 09:28> - Lab Data Result diagrams: 02/08/20 07:05 02/08/20 07:05 <Nazario Gold - Last Filed: 02/08/20 09:56> - Medical Decision Making 74-year-old female with a history of CLL presents emergency Department today with lower extremity pain worsening on the right leg. Patient has a history of peripheral stents performed by Dr. Cazares and is scheduled to have an upcoming angiography. She does have dorsalis. The posterior tibial pulse auscultated bilaterally with Doppler. She does have history bilaterally erythema with skin changes and ulceration over bilateral ankles and feet. Patient does have extensive ALLERGY list was started on IV antibiotic. CT angiography was nega tive for acute occlusion. Patient case was discussed with Dr. Gold who also examined the Patient. Determined the Patient will be admitted at this time for cellulitis.. We'll consult patient's infectious disease doctor Dr. Finn as well as Dr. Cazares. ([facility] - Lab Data Lab Results 02/08/20 02/08/20 02/08/20 Range/Units 07:05 07:05 07:05 WBC 20.6 H (3.8-10.6) k/uL RBC 5.43 H (3.80-5.40) m/uL Hgb 15.8 (11.4-16.0) gm/dL Hct 51.4 H (34.0-46.0) % MCV 94.8 (80.0-100.0) fL MCH 29.2 (25.0-35.0) pg MCHC 30.8 L (31.0-37.0) g/dL RDW 15.3 (11.5-15.5) % Plt Count 264 (150-450) k/uL Neutrophils % (Manual) 46 % Band Neutrophils % 1 % Lymphocytes % (Manual) 46 % Monocytes % (Manual) 6 % Basophils % (Manual) 1 % Neutrophils # (Manual) 9.60 H (1.3-7.7) k/uL Lymphocytes # (Manual) 9.48 H (1.0-4.8) k/uL Monocytes # (Manual) 1.24 H (0-1.0) k/uL Basophils # (Manual) 0.21 H (0-0.2) k/uL Nucleated RBCs 0 (0-0) /100 WBC Manual Slide Review Performed RBC Morphology Normal PT 10.8 (9.0-12.0) sec INR 1.0 (<1.2) APTT 21.5 L (22.0-30.0) sec Sodium 140 (137-145) mmol/L Potassium 4.4 (3.5-5.1) mmol/L Chloride 108 H (98-107) mmol/L Carbon Dioxide 24 (22-30) mmol/L Anion Gap 8 mmol/L BUN 19 H (7-17) mg/dL Creatinine 0.83 (0.52-1.04) mg/dL Est GFR (CKD-EPI)AfAm 80 (>60 ml/min/1.73 sqM) Est GFR (CKD-EPI)NonAf 70 (>60 ml/min/1.73 sqM) Glucose 105 H (74-99) mg/dL Calcium 8.8 (8.4-10.2) mg/dL Total Bilirubin 1.3 (0.2-1.3) mg/dL AST 28 (14-36) U/L ALT 21 (4-34) U/L Alkaline Phosphatase 170 H (38-126) U/L Creatine Kinase 58 (30-135) U/L Total Protein 7.3 (6.3-8.2) g/dL Albumin 4.0 (3.5-5.0) g/dL 02/08/20 07:52 Patient EKG shows atrial fibrillation, right axis deviation. Ventricular rate of 86 bpm. OR interval undetected. QRS duration 90 ms. QT QTc is 396/473 ms. (Briana Smith) - Radiology Data No evidence for vascular occlusion or hemodynamically significant stenosis within bilateral runoff arteries. Stent placement as noted are patent. Subcutaneous edema of bilateral calves and ankles may be related to cellulitis however edema of other causes not excluded. Correlate clinically. Read by Dr. Riddle. (Briana Smith) Disposition Is patient prescribed a controlled substance at d/c from ED?: No Time of Disposition: 09:31 <Briana Smith - Last Filed: 02/08/20 09:28> <Nazario Gold - Last Filed: 02/08/20 09:56> Clinical Impression: PAD (peripheral artery disease), Cellulitis, CLL (chronic lymphocytic leukemia) Disposition: ADMITTED IP TO THIS HOSP Condition: Stable
[2020-02-08] MEDS ORDERED: diphenhydrAMINE 50 MG/ML 1 ML VIAL IVP STA (07:25)
[2020-02-08] MEDS ORDERED: methylPREDNISolone SOD SUCCI 125 MG/2 ML VIAL IV STA (07:25)
[2020-02-08] MEDS ORDERED: FAMOTIDINE 20 MG/2 ML VIAL IV STA (07:25)
[2020-02-08 07:26] LABS: HCT 51.4 % (34.0-46.0); HGB 15.8 gm/dL (11.4-16.0); MCH 29.2 pg (25.0-35.0); MCHC 30.8 g/dL (31.0-37.0); MCV 94.8 fL (80.0-100.0); Mean Platelet Volume 7.6; Platelet Count 264 k/uL (150-450); RBC 5.43 m/uL (3.80-5.40); RDW 15.3 % (11.5-15.5); WBC 20.6 k/uL (3.8-10.6)
[2020-02-08 07:36] LABS: Calcium 8.8 mg/dL (8.4-10.2); Potassium 4.4 mmol/L (3.5-5.1); Total Bilirubin 1.3 mg/dL (0.2-1.3); Total Protein 7.3 g/dL (6.3-8.2)
[2020-02-08 07:42] LABS: Prothrombin Time 10.8 sec (9.0-12.0)
[2020-02-08 07:45] LABS: Partial Thromboplastin Time 21.5 sec (22.0-30.0)
[2020-02-08 08:00] LABS: Band Neutrophils % 1 %; Basophils # (M) 0.21 k/uL (0-0.2); Lymphocytes # (M) 9.48 k/uL (1.0-4.8); Monocytes # (M) 1.24 k/uL (0-1.0); Neutrophils % (M) 46 %; Nucleated Red Blood Cells 0 /100 WBC (0-0); Total Cells Counted 100
--- NOTE | 2020-02-08 09:02 | CT ---
EXAMINATION TYPE: CT angio lower extremity BILAT DATE OF EXAM: 02/08/2020 8:45 AM COMPARISON: None HISTORY: Rt leg cellulitis, PAD CT DLP: 4095.1 mGycm Automated exposure control for dose reduction was used. TECHNIQUE: Performed without and with IV Contrast, patient injected with 100 mL of Isovue 370. . Lower extremity runoff was performed from the distal abdominal aorta through the ankles. 3-D reconstr uction was obtained at a separate workstation. FINDINGS: Nonaneurysmal atheromatous change of the distal abdominal aorta. Common iliac arteries are patent jackelin aterally with multifocal disease noted which is 750% stenosis. Left common femoral stent is noted. Co mmon femoral arteries and superficial femoral arteries are patent bilaterally. Stent is noted of the right superficial femoral artery which is also patent. In addition there is a left SFA stent noted wh ich is also patent. Profunda femoris is patent bilaterally. Popliteal arteries demonstrate mild ather omatous change and are patent bilaterally. Trifurcation is are patent bilaterally as are the anterior tibial, posterior tibial and peroneal arteries bilaterally. Limited contrast bolus timing at the ank les and feet. There is subcutaneous edema noted of the bilateral calves extending to the ankles which could be rela marisa to cellulitis versus edema from other causes. Osseous structures are intact. Degenerative changes lumbar spine. Postoperative changes lumbar spine. Mild degenerative changes of the hips and knees. IMPRESSION: 1. No evidence for vascular occlusion or hemodynamically significant stenosis within the bilateral ru noff arteries. Stent placements as noted are patent 2. Subcutaneous edema of the bilateral calves and ankles may be related to cellulitis however edema f rom other causes are not excluded. Correlate clinically.
[2020-02-08] MEDS ORDERED: MORPHINE SULFATE 4 MG/ML SYRINGE IV PRN (09:31)
[2020-02-08] MEDS ORDERED: NALOXONE 0.4 MG/ML 1 ML VIAL IV PRN (09:31)
[2020-02-08] MEDS ORDERED: KETOROLAC 30 MG/ML 1 ML VIAL IVP PRN (09:31)
[2020-02-08] MEDS ORDERED: diphenhydrAMINE 25 MG CAP PO PRN (09:33)
[2020-02-08] MEDS ORDERED: hydrOXYzine HCL 25 MG TAB PO PRN (09:33)
[2020-02-08] MEDS ORDERED: ALPRAZolam 0.25 MG TAB PO PRN (09:33)
[2020-02-08] MEDS ORDERED: NITROGLYCERIN SL TABS 0.4 MG TAB SUBLINGUAL PRN (09:33)
[2020-02-08] MEDS ORDERED: LEVOFLOXACIN 750MG-D5W PMX 750 MG in DEXTROSE/WATER 1 150ML.BAG IVPB STA (09:43)
[2020-02-08] MEDS ORDERED: cefTRIAXone IN SWFI 1,000 MG/10 ML SYRINGE IVP STA (09:45)
[2020-02-08] MEDS: SODIUM CHLORIDE 0.9% 1,000 ML IV SCH (10:09)
[2020-02-08] MEDS: METOLAZONE 5 MG TAB PO SCH (10:17)
[2020-02-08 11:18] LABS: Mucus,Urine Rare /hpf; RBC,Urine 8 /hpf (0-5); Squamous Epithelial Cell,Urine 6 /hpf (0-4); WBC,Urine 6 /hpf (0-5)
[2020-02-08 11:22] LABS: Appearance,Urine Cloudy (Clear); Color,Urine Yellow; Glucose,Urine (UA) Negative (Negative); Ketones,Urine Negative (Negative); Protein,Urine 2+ (Negative); Specific Gravity,Urine 1.015 (1.001-1.035)
[2020-02-08 11:23] LABS: Bilirubin,Urine Negative (Negative); Blood,Urine Small (Negative); Nitrite,Urine Positive (Negative); Urobilinogen,Urine <2.0 mg/dL (<2.0)
[2020-02-08 11:24] LABS: Leukocyte Esterase,Urine Negative (Negative)
--- NOTE | 2020-02-08 21:05 | HP ---
HISTORY AND PHYSICAL DATE OF SERVICE: 02/08/2020 CHIEF COMPLAINT: Pain and swelling of the right calf. HISTORY OF PRESENT ILLNESS: This 74-year-old woman with a past medical history of multiple medical problems, including history of asthma, CAD, history of GERD, hypertension, hyperlipidemia, history of neurologic disorder, history of appendectomy, back surgery, being followed by Dr. Reid in the outpatient setting, was complaining of pain and swelling of the right calf. The patient had severe pain and some swelling was also noted. She was scheduled to have angiography on Friday with Dr. Cazares. The patient had previous procedure with Dr. Cazares on the right side. The patient also had some infection which Dr. Mullen was managing in the outpatient setting. The spot on the right leg is slightly healing, according to her, but there is more erythema and redness around it. The patient was on Plavix for anticoagulation. The patient also had a stent placed in 2018. There is no history of any fever, rigor or chills. No history of headache, loss of consciousness, seizures. PAST MEDICAL HISTORY: History of asthma, CAD, history of GERD, history of hearing defects, hypertension, hyperlipidemia, history of DJD, respiratory disorder, history of appendectomy, back surgery. HOME MEDICATIONS: 1. Atarax 25 mg daily p.r.n. 2. ProAir 1-2 puffs q.6 p.r.n. 3. Nitrostat 0.4 sublingually p.r.n. 4. Plavix 75 mg each morning. 5. Pulmicort 0.5 mg b.i.d. 6. Benadryl 25 mg q.4 p.r.n. 7. Catapres 0.1 b.i.d. 8. Norvasc 5 mg p.o. daily. 9. Singulair 10 mg at bedtime. 10.Toprol-XL 100 mg p.o. daily. 11.Cozaar 50 mg p.o. daily. 12.Cymbalta 30 mg p.o. b.i.d. 13.Betoptic 0.5% one drop both eyes b.i.d. 14.Aspirin 81 mg p.o. each morning. 15.Xanax 0.25 daily p.r.n. ALLERGIES: MULTIPLE ALLERGIES, INCLUDING ZITHROMAX, CEDAR WOOD, CLINDAMYCIN, GUAIFENESIN, TAZOBACTAM, BEE VENOM, ATORVASTATIN, CODEINE, LATEX, ANTIBACTERIAL SOAP, BORAX, CLOROX, OXI-CLEAN, PURIFIED WATER. FAMILY HISTORY: History of CVA, TIA, myocardial infarction, CABG. SOCIAL HISTORY: History of smoking. No history of alcohol intake. REVIEW OF SYSTEMS: ENT: No diminished hearing. No diminished vision. CARDIOVASCULAR SYSTEM: No angina, palpitations. RESPIRATORY SYSTEM: No cough, hemoptysis. GI: No nausea, vomiting. : No dysuria or retention. NERVOUS SYSTEM: No numbness, weakness. ALLERGY/IMMUNOLOGY: No asthma, hayfever. MUSCULOSKELETAL: As mentioned earlier. HEMATOLOGY/ONCOLOGY: No history of anemia. ENDOCRINE: No history of diabetes, hypothyroidism. CONSTITUTIONAL: As mentioned earlier. DERMATOLOGY: As mentioned earlier. RHEUMATOLOGY: As mentioned earlier. PSYCHIATRY: As mentioned earlier. PHYSICAL EXAMINATION: Patient alert and oriented x3. Pulse is 97, blood pressure 130/97, respiration 18, temperature 97.9, pulse ox 94% on 3 L. HEENT: Conjunctivae normal. Oral mucosa moist. NECK: No jugular venous distention. No carotid bruit. No lymph node enlargement. CARDIOVASCULAR SYSTEM: S1, S2 muffled. RESPIRATORY SYSTEM: Breath sounds diminished at the bases. Bilateral scattered rhonchi and crackles. ABDOMEN: Soft, non-tender. No mass palpable. LEGS: Bilateral leg edema, right more than the left. Right calf is also tender. NERVOUS SYSTEM: Higher functions as mentioned earlier. Moves all 4 limbs. No focal motor or sensory deficit. LYMPHATICS: No lymph node palpable in neck, axillae or groin. SKIN: As mentioned earlier. JOINTS: No active deforming arthropathy. LABS: WBC 20.6, hemoglobin 15.8, sodium 140, potassium 4.4, alkaline phosphatase 170. UA noted. ASSESSMENT: 1. Acute cellulitis with severe pain of the right calf. 2. Rule out peripheral vascular disease. 3. Increased white count. 4. Cellulitis of the right leg. 5. History of asthma. 6. History of coronary artery disease. 7. History of gastroesophageal reflux disease. 8. Hearing defect. 9. Hypertension. 10.Hyperlipidemia. 11.History of chronic liver disease. 12.History of degenerative joint disease. 13.Pneumonia. 14.Sleep apnea. 15.History of chronic lymphatic leukemia, stage I. 16.History of chronic hypoxic respiratory failure. 17.Obstructive sleep apnea. 18.History of tremors. 19.History of degenerative joint disease. 20.History of nephrolithiasis. 21.History of diverticular disease. 22.History of appendectomy. 23.History of back surgery. 24.History of coronary artery disease/stent. 25.History of claustrophobia, anxiety, depression. 26.History of nicotine dependence, continued ongoing. 27.Obesity with body mass index of 41.7. 28.FULL CODE. RECOMMENDATIONS AND DISCUSSION: In this 74-year-old woman who presented with multiple medical problems, we will monitor the patient closely, initiate broad-spectrum IV antibiotics, pain medication. I would also recommend diuretics and closely monitor the electrolytes. I would also recommend pain medications. We will closely monitor with Dr. Mullen and Dr. Cazares. Home medication reconciled. Prognosis guarded because of multiple complex medical conditions. Further recommendations to follow. A copy of this dictation is being forwarded to Dr. Reid, who is the primary physician. MMRUPINDER / IRAMN: [id number] / NIKKI
[2020-02-08] MEDS: LOSARTAN 50 MG TAB PO SCH (21:07)
[2020-02-08] MEDS: DULoxetine HCL 30 MG CAPSULE.DR PO SCH (21:07)
[2020-02-08] MEDS: FUROSEMIDE 10 MG/ML 4 ML VIAL IV SCH (21:08)
[2020-02-08] MEDS: cloNIDine HCL 0.1 MG TAB PO SCH (21:08)
[2020-02-08] MEDS: MONTELUKAST 10 MG TAB PO SCH (21:08)
[2020-02-08] MEDS: BUDESONIDE 0.5 MG/2 ML NEBU INHALATION SCH (21:14)
[2020-02-08] MEDS: TIMOLOL 0.5% OPHTH DROPS 5 ML BTL BOTH EYES SCH (21:28)
[2020-02-08] MEDS: METOPROLOL SUCCINATE (ER) 100 MG TAB.ER.24H PO SCH (21:28)
[2020-02-09 07:39] LABS: Calcium 9.3 mg/dL (8.4-10.2)
[2020-02-09 08:02] LABS: Basophils # (A) 0.2 k/uL (0-0.2); Basophils % (A) 0 %; Eosinophils % (A) 0 %; HCT 50.7 % (34.0-46.0); HGB 15.8 gm/dL (11.4-16.0); Lymphocytes % (A) 36 %; MCH 29.6 pg (25.0-35.0); MCHC 31.1 g/dL (31.0-37.0); MCV 95.4 fL (80.0-100.0); Mean Platelet Volume 8.1; Monocytes # (A) 2.2 k/uL (0-1.0); Monocytes % (A) 6 %; Neutrophils # (A) 19.8 k/uL (1.3-7.7); Neutrophils % (A) 55 %; Platelet Count 248 k/uL (150-450); RBC 5.32 m/uL (3.80-5.40); RDW 15.3 % (11.5-15.5); WBC 35.9 k/uL (3.8-10.6)
[2020-02-09] MEDS: CLOPIDOGREL 75 MG TAB PO SCH (08:12)
[2020-02-09] MEDS: LOSARTAN 50 MG TAB PO SCH ×2 (08:12→21:14)
[2020-02-09] MEDS: ASPIRIN 81 MG PO SCH (08:12)
[2020-02-09] MEDS: TIMOLOL 0.5% OPHTH DROPS 5 ML BTL BOTH EYES SCH ×2 (08:12→21:15)
[2020-02-09] MEDS: PANTOPRAZOLE 40 MG TABLET PO SCH (08:12)
[2020-02-09] MEDS: DULoxetine HCL 30 MG CAPSULE.DR PO SCH ×2 (08:12→21:15)
[2020-02-09] MEDS: FUROSEMIDE 10 MG/ML 4 ML VIAL IV SCH ×2 (08:12→21:14)
[2020-02-09] MEDS: amLODIPine 5 MG TAB PO SCH (08:12)
[2020-02-09] MEDS: cloNIDine HCL 0.1 MG TAB PO SCH ×2 (08:12→21:14)
[2020-02-09] MEDS ORDERED: FUROSEMIDE 40 MG TAB PO SCH (09:00)
[2020-02-09 09:11] LABS: Anisocytosis (M) Present; Poikilocytosis (M) Present; Polychromasia Present
--- NOTE | 2020-02-09 12:10 | P.CRDCN ---
History of Present Illness History of present illness: HISTORY OF PRESENTING ILLNESS This is a pleasant 74-year-old female past medical history significant for coronary artery disease status post PCI, peripheral arterial disease, hyper tension, dyslipidemia, COPD on home oxygen, sleep apnea, morbid obesity and chronic nicotine dependence. She follows in the office with Dr. Hassan. We have been asked to see in consultation for PAD. She recently had a visit with Dr. Cazares in the office secondary to right lower extremity pain and chronic nonhealing wound in the anterior tibial portion. She underwent lower extremity Doppler with velocities of 400 as well as an occluded right peroneal. She was scheduled to undergo peripheral angiogram on Friday. However her pain in her right leg was quite significant prompting her to come to the emergency department. She underwent a CT angiogram of the lower extremities revealing no evidence for vascular occlusion or hemodynamically significant stenosis bilaterally with a patent stent noted. There is subcutaneous edema of the bilateral calf and ankle secondary to cellulitis. She has been seen in consult by infectious disease and initiated on IV antibiotics. She states her pain is n ow under control on current regimen. Most recent cardiac catheterization performed in 2013 revealed widely pain RCA, noncritical lesion of the mid LAD that was unchanged from previous cardiac catheterization. At that time medical therapy was recommended. Most recent peripheral intervention was performed in 2018. At that time she underwent atherectomy of the right SFA and successful stent placement. Current daily cardiac medications include aspirin 81 mg daily, Plavix 75 mg daily, clonidine 0.1 mg twice a day, amlodipine 5 mg daily, Toprol 100 mg daily, zaroxolyn 5 mg every other day and losartan 50 mg twice a day. EKG in ER reveals atrial fibrillation with controlled ventricular rate. Laboratory data reviewed, WBC 35.9, hgb 15.8, plt 248, sodium 138, potassium 4.0, creatinine 0.79 and magnesium 1.6. Most recent echocardiogram obtained in March 2019 revealed preserved LV systolic function with ejection fraction 55%, grade 3 diastolic dysfunction, moderate concentric LVH, mildly dilated right ventricle, mildly dilated right atrium, mild tricuspid regurgitation and severe pulmonary hypertension with RVSP of 60 mmHg. REVIEW OF SYSTEMS At the time of my exam: CONSTITUTIONAL: Denies fever or chills. CARDIOVASCULAR: Denies chest pain, shortness of breath, orthopnea, PND or palpi tations. RESPIRATORY: Denies cough. GASTROINTESTINAL: Denies abdominal pain, diarrhea, constipation, nausea or vomiting. MUSCULOSKELETAL: Denies myalgias. NEUROLOGIC: Denies numbness, tingling or weakness. ENDOCRINE: Denies fatigue, weight change, polydipsia or polyurina. GENITOURINARY: Denies burning, hematuria or urgency with micturation. HEMATOLOGIC: Denies history of anemia or bleeding. PHYSICAL EXAMINATION Blood pressure 159/92 heart rate 86 afebrile and maintaining oxygen saturation on room air. CONSTITUTIONAL: No apparent distress. Morbidly obese. HEENT: Head is normocephalic. Pupils are equal, round. Sclerae anicteric. Mucous membranes of the mouth are moist. No JVD. No carotid bruit. CHEST EXAMINATION: Lungs are clear to auscultation. No chest wall tenderness is noted on palpation or with deep breathing. Diminished bilaterally. HEART EXAMINATION: Irregular rate and rhythm. S1, S2 heard. No murmurs, gallops or rub. ABDOMEN: Soft, nontender. Positive bowel sounds. EXTREMITIES: Bilateral lower extremity swelling, non-pitting. Right greater than left erythema and scabbed ulceration to right anterior tibial region. NEUROLOGIC EXAMINATION: Patient is awake, alert and oriented x3. ASSESSMENT New onset paroxysmal atrial fibrillation controlled ventricular rate Right lower extremity cellulitis Leukocytosis Peripheral vascular disease s/p athrectomy and stent placement to the right SFA 04/2018 Coronary artery disease s/p PCI Hypertension Dyslipidemia Chronic diastolic heart failure Obstructive sleep apnea, non-compliant with C-PAP COPD on home oxygen Chronic nicotine dependence Morbid obesity, BMI 41 PLAN Lower extremity angiogram revealed patent stent with no obstructive peripheral disease. Case for Friday can be cancelled. Test results discussed with her in de tail. A-fib noted on admit EKG, this is a new diagnosis for the patient. Given her significant history of peripheral and coronary artery disease we recommend discontinuation of aspirin and initiate xarelto at 15 mg daily along with plavix. The patient is somewhat hesitant to change her meds but does understand the rationale and the need for thromboembolic protection. She will speak to her family first. In the meantime, we will check the cost of xarelto. Repeat 2D echocardiogram and doppler study to assess cardiac structure and function. Further recommendations to follow based on clinical course. Thank you kindly for this consultation. Nurse Practitioner note has been reviewed, I agree with a documented findings and plan of care. Patient was seen and examined. Past Medical History Past Medical History: Asthma, Coronary Artery Disease (CAD), Cancer, Chest Pain / Angina, Eye Disorder, GERD/Reflux, Hearing Disorder / Deafness, Hyperlipidemia, Hypertension, Liver Disease, Neurologic Disorder, Osteoarthritis (OA), Pneumonia, Respiratory Disorder, Sleep Apnea/CPAP/BIPAP, Vascular Disorder Additional Past Medical History / Comment(s): 2013 CLL stage I/enlarged lymph nodes in chest, angioedema, bronchitis, home oxygen at 2L/NC HS, TRUDY without device, PAD, cellulitis bilateral lower legs/past wounds, tremors, chronic back pain, optic migraines, arthritis in neck/back, elevated LFTs-told fatty liver, nephrolithiasis, diverticular disease, hiatal hernia, bilateral glaucoma, bilateral tinnitis/CHILKOOT History of Any Multi-Drug Resistant Organisms: None Reported Past Surgical History: Appendectomy, Back Surgery, Cholecystectomy, Heart Catheterization, Heart Catheterization With Stent, Hysterectomy, Orthopedic Surgery, Tonsillectomy Additional Past Surgical History / Comment(s): Aortagrams with post puncture site bleeds, 2015 L leg iliac/SFA stented, 2018 R leg SFA stented, PCI with stent, EGD, colonoscopy, L foot heel spur/bunionectomy with hardware, bilateral cataract removals/lens implants. lt leg Past Anesthesia/Blood Transfusion Reactions: Previous Problems w/ Anesthesia Additional Past Anesthesia/Blood Transfusion Reaction / Comment(s): CLAUSTROPHOBIC. Pt woke during foot surgery. Date of Last Stent Placement:: 2006 Smoking Status: Current every day smoker - Past Family History Father Family Medical History: Cancer, CVA/TIA, Myocardial Infarction ([place]) Mother Family Medical History: Coronary Artery Disease (CAD), Deep Vein Thrombosis ( DVT) Additional Family Medical History / Comment(s): CABG-4 vessel Medications and Allergies Home Medications Medication Instructions Recorded Confirmed Type Betaxolol HCl [Betoptic S 0.5% 1 drop BOTH EYES BID 02/14/14 02/08/20 History Melissa Soln] Metoprolol Succinate (ER) [Toprol 100 mg PO DAILY@0700 02/14/14 02/08/20 History XL] cloNIDine HCL [Catapres] 0.1 mg PO BID 02/14/14 02/08/20 History Budesonide [Pulmicort] 0.5 mg INHALATION RT-BID 08/15/14 02/08/20 History Losartan [Cozaar] 50 mg PO BID 08/15/14 02/08/20 History hydrOXYzine HCL [Atarax] 25 mg PO DAILY PRN 08/15/14 02/08/20 History ALPRAZolam [Xanax] 0.25 mg PO DAILY PRN 02/19/17 02/08/20 History Albuterol Sulfate [Proair Hfa] 1 - 2 puff INHALATION RT-Q6H PRN 02/19/17 02/08/20 History DULoxetine HCL [Cymbalta] 30 mg PO BID 02/19/17 02/08/20 History Montelukast Sodium [Singulair] 10 mg PO HS 02/19/17 02/08/20 History diphenhydrAMINE [Benadryl] 25 mg PO Q4H PRN 02/19/17 02/08/20 History Aspirin [Adult Low Dose Aspirin EC] 81 mg PO QAM 03/13/18 02/08/20 History Clopidogrel [Plavix] 75 mg PO QAM 03/13/18 02/08/20 History Nitroglycerin Sl Tabs [Nitrostat] 0.4 mg SUBLINGUAL Q5M PRN 04/15/18 02/08/20 History amLODIPine [Norvasc] 5 mg PO DAILY #90 tab 04/24/18 02/08/20 Rx Rivaroxaban [Xarelto] 15 mg PO DAILY #90 tab 02/09/20 Rx Allergies Allergy/AdvReac Type Severity Reaction Status Date / Time azithromycin Allergy HIVES Verified 02/08/20 09:23 cedarwood [Cedarwood] Allergy HIVES Verified 02/08/20 09:23 clindamycin Allergy Rash/Hives Verified 02/08/20 09:23 guaifenesin [From Robitussin] Allergy Rash/Hives Verified 02/08/20 09:23 Iodinated Contrast Media Allergy HIVES, Verified 02/08/20 09:23 [Iodinated Contrast Media - ITCHIING IV Dye] piperacillin sodium Allergy HIVES Verified 02/08/20 09:23 [From Zosyn] tazobactam sodium Allergy HIVES Verified 02/08/20 09:23 [From Zosyn] venom-honey bee Allergy Anaphylaxis Verified 02/08/20 09:23 [bee venom (honey bee)] venom-wasp [Wasp Venom] Allergy Anaphylaxis Verified 02/08/20 09:23 atorvastatin AdvReac SEVERE Verified 02/08/20 09:23 MUSCLE CRAMPING codeine AdvReac Hallucinati Verified 02/08/20 09:23 ons latex AdvReac Rash/Hives Verified 02/08/20 09:23 ANTIBACTERIAL SOAP Allergy HIVES Uncoded 04/15/18 16:45 BORAX Allergy HIVES Uncoded 04/15/18 16:45 chloride Allergy Rash/Hives Uncoded 04/15/18 16:45 chlorox Allergy Rash/Hives Uncoded 04/15/18 16:45 OXI-CLEAN Allergy HIVES Uncoded 04/15/18 16:45 PURIFIED WATER AdvReac SEVERE Uncoded 04/15/18 16:45 COUGHING Physical Exam Vitals: Vital Signs Temp Pulse Pulse Resp BP BP Pulse Ox 02/09/20 04:50 97.6 F 86 20 159/92 95 02/08/20 23:38 98 20 02/08/20 21:23 99 02/08/20 21:19 95 02/08/20 20:18 95 20 141/92 96 02/08/20 17:03 97 18 133/97 Intake and Output 02/08/20 02/09/20 02/09/20 22:59 06:59 14:59 Intake Total 290 50 Balance 290 50 Intake: Intake, IV Titration 50 50 Amount ceFAZolin 2 gm In Sodium 50 50 Chloride 0.9% 50 ml @ 100 mls/hr IVPB Q8H [facility] Rx#: [id number] Oral 240 Other: Voiding Method Bedside Commode Bedside Commode Incontinent # Voids 3 Results 02/09/20 06:44 02/09/20 06:44 CBC 02/09/20 Range/Units 06:44 WBC 35.9 H (3.8-10.6) k/uL RBC 5.32 (3.80-5.40) m/uL Hgb 15.8 (11.4-16.0) gm/dL Hct 50.7 H (34.0-46.0) % Plt Count 248 (150-450) k/uL Comprehensive Metabolic Panel 02/09/20 Range/Units 06:44 Sodium 138 (137-145) mmol/L Potassium 4.0 (3.5-5.1) mmol/L Chloride 99 (98-107) mmol/L Carbon Dioxide 27 (22-30) mmol/L BUN 21 H (7-17) mg/dL Creatinine 0.79 (0.52-1.04) mg/dL Glucose 140 H (74-99) mg/dL Calcium 9.3 (8.4-10.2) mg/dL Current Medications Generic Name Dose Route Start Last Admin Trade Name Freq PRN Reason Stop Dose Admin Alprazolam 0.25 mg 02/08/20 09:33 Xanax PO DAILY PRN STRESS hives Amlodipine Besylate 5 mg 02/09/20 09:00 02/09/20 08:12 Norvasc PO 5 mg DAILY SAPNA Administration Aspirin 81 mg 02/09/20 09:00 02/09/20 08:12 Aspirin PO 81 mg QAM SAPNA Administration Budesonide 0.5 mg 02/08/20 20:00 02/08/20 21:14 Pulmicort INHALATION 0.5 mg RT-BID SAPNA Administration Clonidine 0.1 mg 02/08/20 21:00 02/09/20 08:12 Catapres PO 0.1 mg BID SAPNA Administration Clopidogrel Bisulfate 75 mg 02/09/20 09:00 02/09/20 08:12 Plavix PO 75 mg QAM SAPNA Administration Diphenhydramine HCl 25 mg 02/08/20 09:33 Benadryl PO Q4H PRN hives Duloxetine HCl 30 mg 02/08/20 21:00 02/09/20 08:12 Cymbalta PO 30 mg BID SAPNA Administration Furosemide 40 mg 02/08/20 21:00 02/09/20 08:12 Lasix IV 40 mg Q12HR [facility]NA Administration Hydroxyzine HCl 25 mg 02/08/20 09:33 Atarax PO Q6HR PRN Itching Sodium Chloride 1,000 mls @ 20 mls/hr 02/08/20 09:45 02/08/20 10:09 Saline 0.9% IV Not Given .Q24H SAPNA Cefazolin Sodium 2 gm/ Sodium 50 mls @ 100 mls/hr 02/08/20 22:00 02/09/20 05:28 Chloride IVPB 100 mls/hr Q8H [facility] Administration Ketorolac Tromethamine 30 mg 02/08/20 09:31 Toradol IVP 02/13/20 09:32 Q6HR PRN Moderate Pain Losartan Potassium 50 mg 02/08/20 21:00 02/09/20 08:12 Cozaar PO 50 mg BID SAP[facility] Administration Metolazone 5 mg 02/08/20 10:00 02/08/20 10:17 Zaroxolyn PO 5 mg Q2D [facility] Administration Metoprolol Succinate 100 mg 02/08/20 21:00 02/08/20 21:28 Toprol Xl PO 100 mg HS [facility] Administration Montelukast Sodium 10 mg 02/08/20 21:00 02/08/20 21:08 Singulair PO 10 mg HS [facility] Administration Morphine Sulfate 4 mg 02/08/20 09:31 Morphine Sulfate (Inj) IV Q4HR PRN Severe Pain Naloxone HCl 0.2 mg 02/08/20 09:31 Narcan IV Q2M PRN Opioid Reversal Nitroglycerin 0.4 mg 02/08/20 09:33 Nitrostat SUBLINGUAL Q5M PRN Chest Pain Pantoprazole Sodium 40 mg 02/09/20 07:30 02/09/20 08:12 Protonix PO 40 mg [id number] [facility] Administration Timolol Maleate 1 drops 02/08/20 21:00 02/09/20 08:12 Timoptic BOTH EYES 1 drops BID [facility] Administration Intake and Output 02/08/20 02/09/20 02/09/20 22:59 06:59 14:59 Intake Total 290 50 Balance 290 50 Intake: Intake, IV Titration 50 50 Amount ceFAZolin 2 gm In Sodium 50 50 Chloride 0.9% 50 ml @ 100 mls/hr IVPB Q8H [facility] Rx#: [id number] Oral 240 Other: Voiding Method Bedside Commode Bedside Commode Incontinent # Voids 3 02/09/20 06:44 02/09/20 06:44
[2020-02-09] MEDS: BUDESONIDE 0.5 MG/2 ML NEBU INHALATION SCH ×2 (12:21→19:05)
--- NOTE | 2020-02-09 14:28 | P.PN ---
Subjective Progress Note Date: 02/09/20 Principal diagnosis: This is a 74-year-old female who was recently admitted with right lower extremity calf pain and swelling and is being closely monitored. Infectious disease is following. Patient remains on IV cefazolin and will continue at this time. Patient was following in the outpatient setting at the wound care center but continued to have some significant swelling and erythema of the right lower extremity. Patient was scheduled to have an angiogram on Friday and was seen and evaluated by cardiology yesterday and underwent an angiogram of the lower extremity showing a patent stent with no obstructive peripheral disease. Patient was also found to be A. fib on the monitor and is currently on Plavix and will add Xarelto and discontinue the aspirin if the Xarelto is affordable. A 2-D echo was ordered and pending at this time. Patient is having some improvement in swelling and erythema today noted to the right extremity. Recommend Silvadene cream applied to the bilateral lower extremities along with wrapping from the foot up to aid in the swelling. Will continue on IV Lasix 40 mg twice daily at this time. Will repeat a.m. labs. Review of systems: Constitutional: No reports of fevers or chills Cardiovascular: No reports of chest pain or palpitations Respiratory: No reports of shortness of breath or cough GI: No reports of nausea, vomiting, or diarrhea : No reports of dysuria or retention Neurovascular: No reports of weakness or numbness Active Medications Alprazolam (Xanax) 0.25 mg PO DAILY PRN PRN Reason: STRESS hives Amlodipine Besylate (Norvasc) 5 mg PO DAILY [facility] Last Admin: 02/09/20 08:12 Dose: 5 mg Documented by: Aspirin (Aspirin) [facility] [place] Last Admin: 02/09/20 08:12 Dose: 81 mg Documented by: Budesonide (Pulmicort) 0.5 mg INHALATION RT-BID [facility] Last Admin: 02/09/20 12:21 Dose: Not Given Documented by: Clonidine (Catapres) 0.1 mg PO BID [facility] Last Admin: 02/09/20 08:12 Dose: 0.1 mg Documented by: Clopidogrel Bisulfate (Plavix) 75 mg PO QAM [facility] Last Admin: 02/09/20 08:12 Dose: 75 mg Documented by: Diphenhydramine HCl (Benadryl) 25 mg PO Q4H PRN PRN Reason: hives Duloxetine HCl (Cymbalta) 30 mg PO BID [facility] Last Admin: 02/09/20 08:12 Dose: 30 mg Documented by: Furosemide (Lasix) 40 mg IV Q12HR [facility] Last Admin: 02/09/20 08:12 Dose: 40 mg Documented by: Hydroxyzine HCl (Atarax) 25 mg PO Q6HR PRN PRN Reason: Itching Sodium Chloride (Saline 0.9%) 1,000 mls @ 20 mls/hr IV .Q24H [facility] Last Admin: 02/08/20 10:09 Dose: Not Given Documented by: Cefazolin Sodium 2 gm/ Sodium (Chloride) 50 mls @ 100 mls/hr IVPB Q8H [facility] Last Admin: 02/09/20 05:28 Dose: 100 mls/hr Documented by: Ketorolac Tromethamine (Toradol) 30 mg IVP Q6HR PRN PRN Reason: Moderate Pain Stop: 02/13/20 09:32 Losartan Potassium (Cozaar) 50 mg PO BID [facility] Last Admin: 02/09/20 08:12 Dose: 50 mg Documented by: Metolazone (Zaroxolyn) 5 mg PO Q2D [facility] Last Admin: 02/08/20 10:17 Dose: 5 mg Documented by: Metoprolol Succinate (Toprol Xl) 100 mg PO [facility] Last Admin: 02/08/20 21:28 Dose: 100 mg Documented by: Montelukast Sodium (Singulair) 10 mg PO [facility] Last Admin: 02/08/20 21:08 Dose: 10 mg Documented by: Morphine Sulfate (Morphine Sulfate (Inj)) 4 mg IV Q4HR PRN PRN Reason: Severe Pain Naloxone HCl (Narcan) 0.2 mg IV Q2M PRN PRN Reason: Opioid Reversal Nitroglycerin (Nitrostat) 0.4 mg SUBLINGUAL Q5M PRN PRN Reason: Chest Pain Pantoprazole Sodium (Protonix) 40 mg PO AC-BRKFST [facility] Last Admin: 02/09/20 08:12 Dose: 40 mg Documented by: Timolol Maleate (Timoptic) 1 drops BOTH EYES BID [facility] Last Admin: 02/09/20 08:12 Dose: 1 drops Documented by: Objective - Vital Signs Vital signs: Vital Signs Temp 97.6 F 06/24/20 12:08 Pulse 89 02/09/20 12:08 Resp 18 02/09/20 12:08 BP 143/77 02/09/20 12:08 Pulse Ox 93 L 02/09/20 12:08 Intake & Output 02/08/20 02/09/20 02/09/20 18:59 06:59 18:59 Intake Total 340 Balance 340 Weight 103.419 kg Intake: Intake, IV Titration 100 Amount ceFAZolin 2 gm In Sodium 100 Chloride 0.9% 50 ml @ 100 mls/hr IVPB Q8H [facility] Rx#: [id number] Oral 240 Other: Voiding Method Bedside Commode Bedside Commode Incontinent # Voids 3 - Exam Gen: This is a 74-year-old female sitting up, awake, alert and oriented 3, well-developed, well-nourished, obese. Temp is 97.6F, pulse is 89, respirations are 18, blood pressure is 143/77, oxygen saturation is 93% on room air. HEENT: Head is atraumatic, normocephalic. Pupils equal, round. Sclerae is anicteric. NECK: Supple. No JVD. No lymphadenopathy. No thyromegaly. LUNGS: Breath sounds diminished bilaterally with a few scattered rhonchi noted. No intercostal retractions. HEART: S1, S2 are muffled ABDOMEN: Soft. Obese. Bowel sounds are present. No masses. No tenderness. EXTREMITIES: No pedal edema. Right calf tenderness. Bilateral lower extremity edema and erythema noted with slight improvement NEUROLOGICAL: Patient is awake, alert and oriented x3. Cranial nerves 2 through 12 are grossly intact. - Labs CBC & Chem 7: 02/09/20 06:44 02/09/20 06:44 Labs: Abnormal Lab Results - Last 24 Hours (Table) 02/09/20 02/09/20 Range/Units 06:44 06:44 WBC 35.9 H (3.8-10.6) k/uL Hct 50.7 H (34.0-46.0) % Neutrophils # 19.8 H (1.3-7.7) k/uL Lymphocytes # 13.0 H (1.0-4.8) k/uL Monocytes # 2.2 H (0-1.0) k/uL BUN 21 H (7-17) mg/dL Glucose 140 H (74-99) mg/dL Microbiology - Last 24 Hours (Table) 02/08/20 08:44 Blood Culture - Preliminary Blood No Growth after 24 hours Assessment and Plan Assessment: Acute cellulitis with severe pain of the right calf Rule out peripheral vascular disease Increased white blood count Cellulitis of the right leg History of asthma history of coronary artery disease History of gastroesophageal reflux disease Hearing defect Hypertension Hyperlipidemia History of chronic liver disease history of degenerative joint disease Pneumonia Sleep apnea History of chronic lymphocytic leukemia, stage I History of chronic hypoxic respiratory failure Obstructive sleep apnea History of tremors History of degenerative joint disease History of nephrolithiasis history of diverticular disease History of appendectomy History of back surgery History of coronary artery disease, stent History of claustrophobia, anxiety, depression History of nicotine dependence, continued ongoing obesity with a body mass index of 41.7 Full code Recommendations and discussion: Recommend to continue with IV antibiotics, current medications, management, and symptomatic treatment. Continue With IV Lasix twice daily at this time. Continue with local wound care and dressing changes and apply Vasyl wraps to bilateral lower extremities from the toes up to the calves and instructed the patient to continue elevating the legs while at rest. Patient also to limit water intake at this time. Will repeat a.m. labs. Due to multiple complex medical issues, prognosis is guarded. Further recommendations to follow. Possible discharge in 48 hours.
[2020-02-09] MEDS: SODIUM CHLORIDE 0.9% 1,000 ML IV SCH (14:48)
[2020-02-09] MEDS: MONTELUKAST 10 MG TAB PO SCH (21:14)
[2020-02-09] MEDS: METOPROLOL SUCCINATE (ER) 100 MG TAB.ER.24H PO SCH (21:14)
--- NOTE | 2020-02-10 05:56 | PN ---
PROGRESS NOTE DATE OF SERVICE: 02/09/2020 REASON FOR FOLLOWUP: Right lower extremity cellulitis. INTERVAL HISTORY: The patient is currently afebrile. The patient's pain to the right lower extremity currently decreased in intensity compared to yesterday down to about 4/10. Patient denies having any chest pain or shortness of breath or cough. No nausea, no vomiting, no diarrhea. PHYSICAL EXAMINATION: Blood pressure 111/71 with a pulse of 83, temperature is 97.3. She is 95% on room air. General description is an elderly female up in the bed in no distress. RESPIRATORY SYSTEM: Unlabored breathing, clear to auscultation anteriorly. HEART: S1, S2. Regular rate and rhythm. ABDOMEN: Soft. No tenderness. Right leg swelling and redness slightly decreased. LABS: Hemoglobin is 15.8, white count 35.9, creatinine 0.79. DIAGNOSTIC IMPRESSION AND PLAN: Patient with acute right lower extremity pain which is multifactorial with concern for possible cellulitis. Patient is covered with cefazolin. She did have significant jump in white count more likely steroid effect and will monitor closely. Continue with supportive care. MMODL / IJN: [id number] /
--- NOTE | 2020-02-10 07:48 | ECHOF ---
Referral Reason:new onset afib MEASUREMENTS -------- HEIGHT: 157.5 cm WEIGHT: 103.4 kg BP: 159/92 RVIDd: 3.4 cm (< 3.3) IVSd: 1.4 cm (0.6 - 1.1) LVIDd: 3.4 cm (3.9 - 5.3) LVPWd: 1.4 cm (0.6 - 1.1) IVSs: 1.7 cm LVIDs: 2.2 cm LVPWs: 1.6 cm LA Diam: 3.7 cm (2.7 - 3.8) LAESV Index (A-L): 23.13 ml/m Ao Diam: 2.6 cm (2.0 - 3.7) AV Cusp: 1.9 cm (1.5 - 2.6) MV EXCURSION: 16.920 mm (> 18.000) MV EF SLOPE: 84 mm/s (70 - 150) EPSS: 0.6 cm RAP: 15.00 mmHg RVSP: 70.09 mmHg FINDINGS -------- This was a technically adequate study. The left ventricular size is normal. There is moderate concentric left ventricular hypertrophy. O verall left ventricular systolic function is normal with, an EF between 55 - 60 %. There is septal flattening in diastole and systole which is consistent with right ventricular pressure and volume ove rload. The right ventricle is mildly enlarged. Normal LA size by volume 22+/-6 ml/m2. The right atrium is normal in size. Interatrial and interventricular septum intact. There is mild aortic valve sclerosis. The mitral valve leaflets are mildly thickened. Mild mitral annular calcification present. Mild-t o-moderate mitral regurgitation is present. Mild tricuspid regurgitation present. There is severe pulmonary hypertension. The right ventricul ar systolic pressure, as measured by Doppler, is 70.09mmHg. Trace/mild (physiologic) pulmonic regurgitation. The aortic root size is normal. The inferior vena cava is dilated with no significant inspiratory collapse which is consistent estima mraisa right atrial pressure of >15 mmHg. There is no pericardial effusion. CONCLUSIONS -------- 1. This was a technically adequate study. 2. The left ventricular size is normal. 3. There is moderate concentric left ventricular hypertrophy. 4. Overall left ventricular systolic function is normal with, an EF between 55 - 60 %. 5. There is septal flattening in diastole and systole which is consistent with right ventricular pres sure and volume overload. 6. The right ventricle is mildly enlarged. 7. Normal LA size by volume 22+/-6 ml/m2. 8. The right atrium is normal in size. 9. Interatrial and interventricular septum intact. 10. There is mild aortic valve sclerosis. 11. The mitral valve leaflets are mildly thickened. 12. Mild mitral annular calcification present. 13. [id number]-[id number] mitral regurgitation is present. 14. Mild tricuspid regurgitation present. 15. There is severe pulmonary hypertension. 16. The right ventricular systolic pressure, as measured by Doppler, is 70.09mmHg. 17. Trace/mild (physiologic) pulmonic regurgitation. 18. The aortic root size is normal. 19. The inferior vena cava is dilated with no significant inspiratory collapse which is consistent es timated right atrial pressure of >15 mmHg. 20. There is no pericardial effusion. [employer]: Abeba Juan RDCS
[2020-02-10] MEDS: BUDESONIDE 0.5 MG/2 ML NEBU INHALATION SCH ×2 (07:57→21:54)
[2020-02-10 08:08] LABS: Basophils # (A) 0.2 k/uL (0-0.2); Basophils % (A) 1 %; Eosinophils # (A) 0.1 k/uL (0-0.7); Eosinophils % (A) 0 %; HCT 50.1 % (34.0-46.0); HGB 16.1 gm/dL (11.4-16.0); Lymphocytes % (A) 60 %; MCH 30.7 pg (25.0-35.0); MCHC 32.2 g/dL (31.0-37.0); MCV 95.6 fL (80.0-100.0); Monocytes # (A) 1.6 k/uL (0-1.0); Monocytes % (A) 5 %; Neutrophils # (A) 9.7 k/uL (1.3-7.7); Neutrophils % (A) 31 %; Platelet Count 259 k/uL (150-450); RBC 5.24 m/uL (3.80-5.40); RDW 14.9 % (11.5-15.5); WBC 31.8 k/uL (3.8-10.6)
[2020-02-10 08:24] LABS: Calcium 8.5 mg/dL (8.4-10.2); Potassium 3.4 mmol/L (3.5-5.1)
[2020-02-10] MEDS: PANTOPRAZOLE 40 MG TABLET PO SCH (08:24)
[2020-02-10] MEDS: DULoxetine HCL 30 MG CAPSULE.DR PO SCH ×2 (08:24→20:36)
[2020-02-10] MEDS: amLODIPine 5 MG TAB PO SCH ×2 (08:24→11:22)
[2020-02-10] MEDS: LOSARTAN 50 MG TAB PO SCH ×2 (08:25→20:35)
[2020-02-10] MEDS: FUROSEMIDE 10 MG/ML 4 ML VIAL IV SCH ×2 (08:25→20:36)
[2020-02-10] MEDS: CLOPIDOGREL 75 MG TAB PO SCH (08:25)
[2020-02-10] MEDS: ASPIRIN 81 MG PO SCH (08:25)
[2020-02-10] MEDS: cloNIDine HCL 0.1 MG TAB PO SCH ×3 (08:25→20:35)
[2020-02-10] MEDS: TIMOLOL 0.5% OPHTH DROPS 5 ML BTL BOTH EYES SCH ×2 (08:27→20:35)
[2020-02-10] MEDS: SODIUM CHLORIDE 0.9% 1,000 ML IV SCH (08:28)
[2020-02-10 08:50] LABS: Poikilocytosis (M) Present
[2020-02-10] MEDS: METOLAZONE 5 MG TAB PO SCH (11:22)
--- NOTE | 2020-02-10 12:23 | P.PN ---
Subjective HISTORY OF PRESENTING ILLNESS This is a pleasant 74-year-old female past medical history significant for coronary artery disease status post PCI, peripheral arterial disease, hypertension, dyslipidemia, COPD on home oxygen, sleep apnea, morbid obesity and chronic nicotine dependence. She follows in the office with Dr. Hassan. She is seen and examined sitting up in the chair. She denies symptoms of chest pain, shortness of breath, dizziness or palpitations. She continues to be in atrial fibrillation with controlled ventricular rate. The cost of Xarelto has been checked by the corrections caseworker and is appropriate and affordable for the patient however she is not quite sure she is comfortable starting this medication at this time. Echocardiogram obtained revealed preserved LV systolic function with ejection fraction 55-60%, mild to moderate MR, mild TR and severe pulmonary hypertension with RVSP of 70 mmHg. Blood pressure 128/76 heart rate 84 afebrile maintaining oxygen saturation on nasal cannula. Laboratory data reviewed, WBC 31.8, hemoglobin 16.1, platelets 259, sodium 137, potassium 3.4 and creatinine 0.81. PHYSICAL EXAMINATION CONSTITUTIONAL: No apparent distress. Morbidly obese. HEENT: Head is normocephalic. Pupils are equal, round. Sclerae anicteric. Mucous membranes of the mouth are moist. No JVD. No carotid bruit. CHEST EXAMINATION: Lungs are clear to auscultation. No chest wall tenderness is noted on palpation or with deep breathing. Diminished bilaterally. HEART EXAMINATION: Irregular rate and rhythm. S1, S2 heard. No murmurs, gallops or rub. EXTREMITIES: Bilateral lower extremity swelling, non-pitting. Right greater than left erythema and scabbed ulceration to right anterior tibial region. ASSESSMENT New onset paroxysmal atrial fibrillation controlled ventricular rate Right lower extremity cellulitis Leukocytosis Peripheral vascular disease s/p athrectomy and stent placement to the right SFA 04/2018 Coronary artery disease s/p PCI Hypertension Dyslipidemia Chronic diastolic heart failure Obstructive sleep apnea, non-compliant with C-PAP COPD on home oxygen Pulmonary hypertension, severe Chronic nicotine dependence Morbid obesity, BMI 41 PLAN Continue current medical regimen. Medication information sheets have been provided to the patient. She will continue to consider initiation of Xarelto. Nurse Practitioner note has been reviewed, I agree with a documented findings and plan of care. Patient was seen and examined. Objective - Vital Signs Vital signs: Vital Signs Temp 97.6 F 02/10/20 04:45 Pulse 84 02/10/20 08:06 Resp 14 02/10/20 04:45 BP 128/76 02/10/20 04:45 Pulse Ox 92 L 02/10/20 04:45 Intake & Output 02/09/20 02/10/20 02/10/20 18:59 06:59 18:59 Intake Total 50 120 Balance 50 120 Intake: Intake, IV Titration 50 Amount ceFAZolin 2 gm In Sodium 50 Chloride 0.9% 50 ml @ 100 mls/hr IVPB Q8H [facility] Rx#: [id number] Oral 120 Other: Voiding Method Bedside Commode Bedside Commode Incontinent # Voids 4 - Labs CBC & Chem 7: 02/10/20 06:46 02/10/20 06:46 Labs: Abnormal Lab Results - Last 24 Hours (Table) 02/10/20 02/10/20 Range/Units 06:46 06:46 WBC 31.8 H (3.8-10.6) k/uL Hgb 16.1 H (11.4-16.0) gm/dL Hct 50.1 H (34.0-46.0) % Neutrophils # 9.7 H (1.3-7.7) k/uL Lymphocytes # 19.0 H (1.0-4.8) k/uL Monocytes # 1.6 H (0-1.0) k/uL Potassium 3.4 L (3.5-5.1) mmol/L Chloride 95 L (98-107) mmol/L Carbon Dioxide 31 H (22-30) mmol/L BUN 28 H (7-17) mg/dL Microbiology - Last 24 Hours (Table) 02/08/20 08:44 Blood Culture - Preliminary Blood No Growth after 48 hours
--- NOTE | 2020-02-10 14:45 | P.PN ---
Subjective Progress Note Date: 02/10/20 Principal diagnosis: This is a 74-year-old female who was recently admitted with right lower extremity calf pain and swelling and is being closely monitored. Infectious disease is following. Patient remains on IV cefazolin and will continue at this time. Patient was following in the outpatient setting at the wound care center but continued to have some significant swelling and erythema of the right lower extremity. Patient was scheduled to have an angiogram on Friday and was seen and evaluated by cardiology yesterday and underwent an angiogram of the lower extremity showing a patent stent with no obstructive peripheral disease. Patient was also found to be A. fib on the monitor and is currently on Plavix and will add Xarelto and discontinue the aspirin if the Xarelto is affordable. A 2-D echo was ordered and pending at this time. Patient is having some improvement in swelling and erythema today noted to the right extremity. Recommend Silvadene cream applied to the bilateral lower extremities along with wrapping from the foot up to aid in the swelling. Will continue on IV Lasix 40 mg twice daily at this time. Will repeat a.m. labs. Review of systems: Constitutional: No reports of fevers or chills Cardiovascular: No reports of chest pain or palpitations Respiratory: No reports of shortness of breath or cough GI: No reports of nausea, vomiting, or diarrhea : No reports of dysuria or retention Neurovascular: No reports of weakness or numbness 02/10/2020 Patient is seen and evaluated in follow-up and continues to have some lower extremity swelling although the swelling has gone down and redness has improved. Currently using Vasyl wraps to aid in the swelling. Discussed with nursing staff about continuing to use Vasyl wraps and wrap up to the thigh and elevate the legs while at rest. She is currently maintained on IV Lasix and will continue at this time. Patient was found to have A. fib and being evaluated by cardiology recommending Xarelto although patient is considering this as she feels she bleeds easily and this would be a bigger problem. Discussed with the patient at length that the risks versus benefits of starting Xarelto would be in her best interest. Patient will discuss with family about this. Patient continues to have some right lower extremity discomfort with palpation noted on the medial side of the knee and thigh. Doppler was negative for DVT. Objective - Vital Signs Vital signs: Vital Signs Temp 97.4 F L 02/10/20 12:48 Pulse 86 02/10/20 12:48 Resp 16 02/10/20 12:48 BP 100/67 02/10/20 12:48 Pulse Ox 97 02/10/20 12:48 Intake & Output 02/09/20 02/10/20 02/10/20 18:59 06:59 18:59 Intake Total 50 120 Balance 50 120 Intake: Intake, IV Titration 50 Amount ceFAZolin 2 gm In Sodium 50 Chloride 0.9% 50 ml @ 100 mls/hr IVPB Q8H [facility] Rx#: [id number] Oral 120 Other: Voiding Method Bedside Commode Bedside Commode Incontinent # Voids 4 - Exam Gen: This is a 74-year-old female sitting up, awake, alert and oriented 3, well-developed, well-nourished, obese. Temp is 97.4F, pulse is 86, respirations are 16, blood pressure is 100/67, oxygen saturation is 97% on 2 L via nasal cannula. HEENT: Head is atraumatic, normocephalic. Pupils equal, round. Sclerae is anicteric. NECK: Supple. No JVD. No lymphadenopathy. No thyromegaly. LUNGS: Breath sounds diminished bilaterally with a few scattered rhonchi noted. No intercostal retractions. HEART: S1, S2 are muffled ABDOMEN: Soft. Obese. Bowel sounds are present. No masses. No tenderness. EXTREMITIES: No pedal edema. Right calf tenderness. Bilateral lower extremity edema and erythema noted with slight improvement, Vasyl wraps also noted bilateral lower extremity NEUROLOGICAL: Patient is awake, alert and oriented x3. Cranial nerves 2 through 12 are grossly intact. - Labs CBC & Chem 7: 02/10/20 06:46 02/10/20 06:46 Labs: Abnormal Lab Results - Last 24 Hours (Table) 02/10/20 02/10/20 Range/Units 06:46 06:46 WBC 31.8 H (3.8-10.6) k/uL Hgb 16.1 H (11.4-16.0) gm/dL Hct 50.1 H (34.0-46.0) % Neutrophils # 9.7 H (1.3-7.7) k/uL Lymphocytes # 19.0 H (1.0-4.8) k/uL Monocytes # 1.6 H (0-1.0) k/uL Potassium 3.4 L (3.5-5.1) mmol/L Chloride 95 L (98-107) mmol/L Carbon Dioxide 31 H (22-30) mmol/L BUN 28 H (7-17) mg/dL Microbiology - Last 24 Hours (Table) 02/08/20 08:44 Blood Culture - Preliminary Blood No Growth after 48 hours Assessment and Plan Assessment: Acute cellulitis with severe pain of the right calf Rule out peripheral vascular disease Increased white blood count Cellulitis of the right leg History of asthma history of coronary artery disease History of gastroesophageal reflux disease Hearing defect Hypertension Hyperlipidemia History of chronic liver disease history of degenerative joint disease Pneumonia Sleep apnea History of chronic lymphocytic leukemia, stage I History of chronic hypoxic respiratory failure Obstructive sleep apnea History of tremors History of degenerative joint disease History of nephrolithiasis history of diverticular disease History of appendectomy History of back surgery History of coronary artery disease, stent History of claustrophobia, anxiety, depression History of nicotine dependence, continued ongoing obesity with a body mass index of 41.7 Full code Recommendations and discussion: Recommend to continue with IV antibiotics, current medications, management, and symptomatic treatment. Continue With IV Lasix twice daily at this time. Continue with local wound care and dressing changes and apply Vasyl wraps to bilateral lower extremities from the toes up to the thighs and instructed the patient to continue elevating the legs while at rest. Patient also to limit wa ter intake at this time. Will repeat a.m. labs. Patient is to be initiated on Xarelto for atrial fibrillation although she is hesitant and will like to think about it before starting. Cardiology is following. Due to multiple complex medical issues, prognosis is guarded. Further recommendations to follow. Possible discharge in 24 hours.
[2020-02-10] MEDS ORDERED: POTASSIUM CHLORIDE ER 20 MEQ TAB.ER PO STA (14:46)
[2020-02-10] MEDS ORDERED: ONDANSETRON 4 MG/2 ML VIAL IVP PRN (15:37)
[2020-02-10 15:38] LABS: Glucose,Whole Blood 131 mg/dL (75-99)
[2020-02-10] MEDS ORDERED: VANCOMYCIN IV PER PHARMACY 1 EACH MISC MISCELLANE PRN (17:01)
[2020-02-10] MEDS ORDERED: VANCOMYCIN 1,750 MG in SODIUM CHLORIDE 0.9% 500 ML 500 ML IVPB ONE (18:00)
[2020-02-10] MEDS: MONTELUKAST 10 MG TAB PO SCH (20:36)
[2020-02-10] MEDS: METOPROLOL SUCCINATE (ER) 100 MG TAB.ER.24H PO SCH (20:36)
--- NOTE | 2020-02-11 03:37 | PN ---
PROGRESS NOTE DATE OF SERVICE: 02/10/2020 REASON FOR FOLLOWUP: 1. Right lower extremity cellulitis. 2. Positive blood culture. INTERVAL HISTORY: Patient's clinical course was complicated by development of positive blood culture this afternoon. The patient this morning still complaining of pain to the right leg though decreased in intensity. No chest pain, shortness of breath or cough. No abdominal pain, no diarrhea. PHYSICAL EXAMINATION: Blood pressure 100/67 with a pulse of 86, temperature 97.4. She is 97% on 2 L nasal cannula. General description is an elderly female up in the bed in no distress. RESPIRATORY SYSTEM: Unlabored breathing, decreased intensity of breath sounds. No wheeze. HEART: S1, S2. Regular rate and rhythm. ABDOMEN: Soft, no tenderness. Right leg is currently dressed up, no obvious drainage on the dressing. LABS: Hemoglobin 16, white count 31.8, creatinine 0.81. Blood culture with gram-positive cocci in clusters. DIAGNOSTIC IMPRESSION AND PLAN: Patient with acute right lower extremity cellulitis, now with clinical course development of positive blood culture with gram-positive cocci in clusters, possible Staph aureus. We will repeat blood cultures x1 to document clearance of bacteremia and add vancomycin pharmacy to dose adjusting further based on culture report. Continue with supportive care. MMODL / IJN: [id number] /
[2020-02-11] MEDS: BUDESONIDE 0.5 MG/2 ML NEBU INHALATION SCH ×2 (07:10→19:20)
[2020-02-11 07:46] LABS: Basophils # (A) 0.1 k/uL (0-0.2); Basophils % (A) 0 %; Eosinophils # (A) 0.2 k/uL (0-0.7); Eosinophils % (A) 1 %; HGB 16.9 gm/dL (11.4-16.0); Hypochromasia Slight; Lymphocytes % (A) 65 %; MCH 29.9 pg (25.0-35.0); MCHC 31.3 g/dL (31.0-37.0); MCV 95.6 fL (80.0-100.0); Mean Platelet Volume 7.7; Monocytes # (A) 1.2 k/uL (0-1.0); Monocytes % (A) 5 %; Neutrophils % (A) 26 %; Platelet Count 317 k/uL (150-450); RBC 5.65 m/uL (3.80-5.40); RDW 14.9 % (11.5-15.5); WBC 26.9 k/uL (3.8-10.6)
[2020-02-11 07:48] LABS: Lymphocytes # (A) 17.4 k/uL (1.0-4.8)
[2020-02-11 08:05] LABS: Calcium 8.7 mg/dL (8.4-10.2); Potassium 4.1 mmol/L (3.5-5.1)
--- NOTE | 2020-02-11 09:23 | P.PN ---
Subjective HISTORY OF PRESENTING ILLNESS This is a pleasant 74-year-old female past medical history significant for coronary artery disease status post PCI, peripheral arterial disease, hypertension, dyslipidemia, COPD on home oxygen, sleep apnea, morbid obesity and chronic nicotine dependence. She follows in the office with Dr. Hassan. She is seen and examined sitting up on the edge of the bed. She complains of shortness of breath, but not worse than her baseline. She denies chest pain, dizziness or palpitations. She continues to be in atrial fibrillation with controlled rates. Blood pressure continues to be on the low side. This morning was 90/63 heart rate 84 afebrile and maintaining oxygen saturation on nasal cannula. Laboratory data reviewed, WBC 26.9, hemoglobin 16.9, platelets 317, sodium 138, potassium 4.1, creatinine 0.9. Blood cultures are positive for gram-positive cocci in clusters. Currently maintained on aspirin 81 mg daily, Plavix 75 mg daily, amlodipine 5 mg daily, clonidine 0.1 mg twice a day, losartan 50 mg twice a day, Toprol 100 mg at bedtime and Lasix 40 mg IV twice a day. Anti-hypertensives have been held due to persistent hypotension. PHYSICAL EXAMINATION CONSTITUTIONAL: No apparent distress. Morbidly obese. HEENT: Head is normocephalic. Pupils are equal, round. Sclerae anicteric. Mucous membranes of the mouth are moist. No JVD. No carotid bruit. CHEST EXAMINATION: Lungs are clear to auscultation. No chest wall tenderness is noted on palpation or with deep breathing. Diminished bilaterally. HEART EXAMINATION: Irregular rate and rhythm. S1, S2 heard. No murmurs, gallops or rub. EXTREMITIES: Bilateral lower extremity swelling, non-pitting. Right greater than left erythema and scabbed ulceration to right anterior tibial region. TRINA wraps in place. ASSESSMENT New onset paroxysmal atrial fibrillation controlled ventricular rate Right lower extremity cellulitis Bacteremia with gram positive cocci blood cultures. Leukocytosis Peripheral vascular disease s/p athrectomy and stent placement to the right SFA 04/2018 Coronary artery disease s/p PCI Hypertension Dyslipidemia Chronic diastolic heart failure Obstructive sleep apnea, non-compliant with C-PAP COPD on home oxygen Pulmonary hypertension, severe Chronic nicotine dependence Morbid obesity, BMI 41 PLAN After lengthy discussion with the patient she is agreeable to initiate long-term anticoagulation in the form of Xarelto 15 mg daily in combination with Plavix 75 mg daily. Aspirin is to be discontinued. Hold clonidine, losartan and Norvasc secondary to persistent hypotension. Continue Toprol for rate control, hold for systolic blood pressure less than 90 or heart rate less than 55. Check NTproBNP, d-dimer and chest xray. Already on IV lasix per primary care team for lower extremity swelling. Continue the same. Nurse Practitioner note has been reviewed, I agree with a documented findings and plan of care. Patient was seen and examined. Objective - Vital Signs Vital signs: Vital Signs Temp 97.6 F 02/11/20 05:10 Pulse 84 02/11/20 07:23 Resp 12 02/11/20 05:10 BP 90/63 02/11/20 05:10 Pulse Ox 94 L 02/11/20 05:10 Intake & Output 02/10/20 02/11/20 02/11/20 18:59 06:59 18:59 Intake Total 1200 500 Balance 1200 500 Intake: Intake, IV Titration 100 500 Amount Vancomycin 1,750 mg In 500 Sodium Chloride 0.9% 500 ml 500 ml @ 167 mls/hr IVPB ONCE ONE Rx#: [id number] ceFAZolin 2 gm In Sodium 100 Chloride 0.9% 50 ml @ 100 mls/hr IVPB Q8H [facility] Rx#: [id number] Oral 1100 Other: Voiding Method Bedside Commode Bedside Commode # Voids 5 2 - Labs CBC & Chem 7: 02/11/20 06:39 02/11/20 06:39 Labs: Abnormal Lab Results - Last 24 Hours (Table) 02/10/20 02/11/20 02/11/20 Range/Units 15:36 06:39 06:39 WBC 26.9 H (3.8-10.6) k/uL RBC 5.65 H (3.80-5.40) m/uL Hgb 16.9 H (11.4-16.0) gm/dL Hct 54.0 H (34.0-46.0) % Lymphocytes # 17.4 H (1.0-4.8) k/uL Monocytes # 1.2 H (0-1.0) k/uL BUN 33 H (7-17) mg/dL POC Glucose (mg/dL) 131 H (75-99) mg/dL Microbiology - Last 24 Hours (Table) 02/09/20 08:44 Blood Culture Gram Stain - Preliminary Blood 02/08/20 08:44 Blood Culture - Final Blood
[2020-02-11] MEDS: CLOPIDOGREL 75 MG TAB PO SCH (09:26)
[2020-02-11] MEDS: DULoxetine HCL 30 MG CAPSULE.DR PO SCH ×2 (09:26→21:50)
[2020-02-11] MEDS: FUROSEMIDE 10 MG/ML 4 ML VIAL IV SCH ×2 (09:26→21:50)
[2020-02-11] MEDS: PANTOPRAZOLE 40 MG TABLET PO SCH (09:26)
[2020-02-11] MEDS: TIMOLOL 0.5% OPHTH DROPS 5 ML BTL BOTH EYES SCH ×2 (09:27→21:52)
[2020-02-11] MEDS: cloNIDine HCL 0.1 MG TAB PO SCH (10:58)
[2020-02-11] MEDS: ASPIRIN 81 MG PO SCH (10:58)
[2020-02-11] MEDS: LOSARTAN 50 MG TAB PO SCH (10:58)
[2020-02-11] MEDS: amLODIPine 5 MG TAB PO SCH (10:58)
[2020-02-11] MEDS: SODIUM CHLORIDE 0.9% 1,000 ML IV SCH (11:07)
[2020-02-11] MEDS: VANCOMYCIN 1,750 MG in SODIUM CHLORIDE 0.9% 500 ML 500 ML IVPB SCH (13:52)
--- NOTE | 2020-02-11 15:22 | P.PN ---
Subjective Progress Note Date: 02/11/20 Principal diagnosis: This is a 74-year-old female who was recently admitted with right lower extremity calf pain and swelling and is being closely monitored. Infectious disease is following. Patient remains on IV cefazolin and will continue at this time. Patient was following in the outpatient setting at the wound care center but continued to have some significant swelling and erythema of the right lower extremity. Patient was scheduled to have an angiogram on Friday and was seen and evaluated by cardiology yesterday and underwent an angiogram of the lower extremity showing a patent stent with no obstructive peripheral disease. Patient was also found to be A. fib on the monitor and is currently on Plavix and will add Xarelto and discontinue the aspirin if the Xarelto is affordable. A 2-D echo was ordered and pending at this time. Patient is having some improvement in swelling and erythema today noted to the right extremity. Recommend Silvadene cream applied to the bilateral lower extremities along with wrapping from the foot up to aid in the swelling. Will continue on IV Lasix 40 mg twice daily at this time. Will repeat a.m. labs. Review of systems: Constitutional: No reports of fevers or chills Cardiovascular: No reports of chest pain or palpitations Respiratory: No reports of shortness of breath or cough GI: No reports of nausea, vomiting, or diarrhea : No reports of dysuria or retention Neurovascular: No reports of weakness or numbness 02/10/2020 Patient is seen and evaluated in follow-up and continues to have some lower extremity swelling although the swelling has gone down and redness has improved. Currently using Vasyl wraps to aid in the swelling. Discussed with nursing staff about continuing to use Vasyl wraps and wrap up to the thigh and elevate the legs while at rest. She is currently maintained on IV Lasix and will continue at this time. Patient was found to have A. fib and being evaluated by cardiology recommending Xarelto although patient is considering this as she feels she bleeds easily and this would be a bigger problem. Discussed with the patient at length that the risks versus benefits of starting Xarelto would be in her best interest. Patient will discuss with family about this. Patient continues to have some right lower extremity discomfort with palpation noted on the medial side of the knee and thigh. Doppler was negative for DVT. 02/11/2020 Patient is seen and evaluated in follow-up and is being closely monitored. Patient continues to have some lower extremity swelling and is shown improvement with the swelling and erythema noted. Patient has Vasyl wraps applied that are currently extending from the toes up to the thighs. Maintained on IV Lasix 40 mg twice daily and will continue at this time. Patient has discussed with her family and cardiology and is willing to start Xarelto for atrial fibrillation. Aspirin will be discontinued. Patient also remains on Plavix and will continue at this time. Patient is currently on cefazolin and IV vancomycin was added as patient's blood culture is preliminary showing micrococcus species with gram- positive cocci in clusters. Infectious disease is following closely. Repeat blood cultures have been ordered and awaiting clearance of bacteremia. Review of systems: Constitutional: No reports of fevers or chills Cardiovascular: No reports of chest pain or palpitations Respiratory: Reports generalized shortness of breath and occasional cough GI: No reports of nausea, vomiting, or diarrhea : No reports of dysuria or retention Neurovascular: No reports of weakness or numbness Active Medications Alprazolam (Xanax) 0.25 mg PO DAILY PRN PRN Reason: STRESS hives Budesonide (Pulmicort) 0.5 mg INHALATION RT-BID [facility] Last Admin: 02/11/20 07:10 Dose: 0.5 mg Documented by: Clopidogrel Bisulfate (Plavix) 75 mg PO QAM [facility] Last Admin: 02/11/20 09:26 Dose: 75 mg Documented by: Diphenhydramine HCl (Benadryl) 25 mg PO Q4H PRN PRN Reason: hives Duloxetine HCl (Cymbalta) 30 mg PO BID [facility] Last Admin: 02/11/20 09:26 Dose: 30 mg Documented by: Furosemide (Lasix) 40 mg IV Q12HR [facility] Last Admin: 02/11/20 09:26 Dose: 40 mg Documented by: Hydroxyzine HCl (Atarax) 25 mg PO Q6HR PRN PRN Reason: Itching Sodium Chloride (Saline 0.9%) 1,000 mls @ 20 mls/hr IV .Q24H [facility] Last Admin: 02/11/20 11:07 Dose: Not Given Documented by: Cefazolin Sodium 2 gm/ Sodium (Chloride) 50 mls @ 100 mls/hr IVPB Q8H [facility] Last Admin: 02/11/20 15:08 Dose: 100 mls/hr Documented by: Vancomycin HCl 1,750 mg/ (Sodium Chloride) 500 mls @ 167 mls/hr IVPB Q24H [facility] Last Admin: 02/11/20 13:52 Dose: 167 mls/hr Documented by: Ketorolac Tromethamine (Toradol) 30 mg IVP Q6HR PRN PRN Reason: Moderate Pain Stop: 02/13/20 09:32 Metolazone (Zaroxolyn) 5 mg PO Q2D [facility] Last Admin: 02/10/20 11:22 Dose: Not Given Documented by: Metoprolol Succinate (Toprol Xl) 100 mg PO [facility] Last Admin: 02/10/20 20:36 Dose: 100 mg Documented by: Montelukast Sodium (Singulair) 10 mg PO [facility] Last Admin: 02/10/20 20:36 Dose: 10 mg Documented by: Morphine Sulfate (Morphine Sulfate (Inj)) 4 mg IV Q4HR PRN PRN Reason: Severe Pain Last Admin: 02/10/20 13:02 Dose: 4 mg Documented by: Naloxone HCl (Narcan) 0.2 mg IV Q2M PRN PRN Reason: Opioid Reversal Nitroglycerin (Nitrostat) 0.4 mg SUBLINGUAL Q5M PRN PRN Reason: Chest Pain Ondansetron HCl (Zofran) 4 mg IVP Q6HR PRN PRN Reason: Nausea And Vomiting Pantoprazole Sodium (Protonix) 40 mg PO AC-BRKFST [facility] Last Admin: 02/11/20 09:26 Dose: 40 mg Documented by: Rivaroxaban (Xarelto) 15 mg PO W/SUPPER [facility] Timolol Maleate (Timoptic) 1 drops BOTH EYES BID [facility] Last Admin: 02/11/20 09:27 Dose: 1 drops Documented by: Objective - Vital Signs Vital signs: Vital Signs Temp 97.4 F L 02/11/20 11:47 Pulse 78 02/11/20 11:47 Resp 17 02/11/20 11:47 BP 108/76 02/11/20 11:47 Pulse Ox 94 L 02/11/20 11:47 Intake & Output 02/10/20 02/11/20 02/11/20 18:59 06:59 18:59 Intake Total 1200 500 Balance 1200 500 Intake: Intake, IV Titration 100 500 Amount Vancomycin 1,750 mg In 500 Sodium Chloride 0.9% 500 ml 500 ml @ 167 mls/hr IVPB ONCE ONE Rx#: [id number] ceFAZolin 2 gm In Sodium 100 Chloride 0.9% 50 ml @ 100 mls/hr IVPB Q8H [facility] Rx#: [id number] Oral 1100 Other: Voiding Method Bedside Commode Bedside Commode # Voids 5 2 - Exam Gen: This is a 74-year-old female sitting up, awake, alert and oriented 3, well-developed, well-nourished, obese. Temp is 97.6F, pulse is 79, respirations are 12, blood pressure is 90/63, oxygen saturation is 94% on 3 L via nasal cannula. HEENT: Head is atraumatic, normocephalic. Pupils equal, round. Sclerae is anicteric. NECK: Supple. No JVD. No lymphadenopathy. No thyromegaly. LUNGS: Breath sounds diminished bilaterally with a few scattered rhonchi noted. No intercostal retractions. HEART: S1, S2 are muffled ABDOMEN: Soft. Obese. Bowel sounds are present. No masses. No tenderness. EXTREMITIES: No pedal edema. Right calf tenderness. Bilateral lower extremity edema and erythema noted with slight improvement, Vasyl wraps also noted bilateral lower extremity NEUROLOGICAL: Patient is awake, alert and oriented x3. Cranial nerves 2 through 12 are grossly intact. - Labs CBC & Chem 7: 02/11/20 06:39 02/11/20 06:39 Labs: Abnormal Lab Results - Last 24 Hours (Table) 02/10/20 02/11/20 02/11/20 Range/Units 15:36 06:39 06:39 WBC 26.9 H (3.8-10.6) k/uL RBC 5.65 H (3.80-5.40) m/uL Hgb 16.9 H (11.4-16.0) gm/dL Hct 54.0 H (34.0-46.0) % Lymphocytes # 17.4 H (1.0-4.8) k/uL Monocytes # 1.2 H (0-1.0) k/uL D-Dimer (<0.60) mg/L FEU BUN 33 H (7-17) mg/dL POC Glucose (mg/dL) 131 H (75-99) mg/dL 02/11/20 Range/Units 09:35 WBC (3.8-10.6) k/uL RBC (3.80-5.40) m/uL Hgb (11.4-16.0) gm/dL Hct (34.0-46.0) % Lymphocytes # (1.0-4.8) k/uL Monocytes # (0-1.0) k/uL D-Dimer 1.14 H (<0.60) mg/L FEU BUN (7-17) mg/dL POC Glucose (mg/dL) (75-99) mg/dL Microbiology - Last 24 Hours (Table) 02/09/20 08:44 Blood Culture Gram Stain - Final Blood Blood Culture - Final Micrococcus species 02/08/20 08:44 Blood Culture - Final Blood Assessment and Plan Assessment: Acute cellulitis with severe pain of the right calf Bacteremia with micrococcus species noted, awaiting finalization of cultures and repeat cultures for clearance of bacteremia New onset Atrial fibrillation, paroxysmal Rule out peripheral vascular disease Increased white blood count Cellulitis of the right leg History of asthma history of coronary artery disease History of gastroesophageal reflux disease Hearing defect Hypertension Hyperlipidemia History of chronic liver disease history of degenerative joint disease Pneumonia Sleep apnea History of chronic lymphocytic leukemia, stage I History of chronic hypoxic respiratory failure Obstructive sleep apnea History of tremors History of degenerative joint disease History of nephrolithiasis history of diverticular disease History of appendectomy History of back surgery History of coronary artery disease, stent History of claustrophobia, anxiety, depression History of nicotine dependence, continued ongoing obesity with a body mass index of 41.7 Full code Recommendations and discussion: Recommend to continue with IV antibiotics, current medications, management, and symptomatic treatment. IV vancomycin being added as blood cultures were showing gram-positive cocci and complete showing micrococcus species. Repeat blood cultures ordered and awaiting clearance of bacteremia. Infectious disease is following Continue With IV Lasix twice daily at this time. Continue with local wound care and dressing changes and apply Vasyl wraps to bilateral lower extremities from the toes up to the thighs and instructed the patient to continue elevating the legs while at rest. Patient also to limit water intake at this time. Will repeat a.m. labs. Patient is being initiated on Xarelto for atrial fibrillation. Cardiology is following. Due to multiple complex medical issues, prognosis is guarded. Further recommendations to follow. Possible discharge in 24 hours.
[2020-02-11] MEDS ORDERED: RIVAROXABAN 15 MG TAB PO SCH (17:30)
--- NOTE | 2020-02-11 17:48 | XR ---
EXAMINATION TYPE: XR chest 2V DATE OF EXAM: 02/11/2020 COMPARISON: NONE HISTORY: Short of breath TECHNIQUE: FINDINGS: Heart appears enlarged. There is some pulmonary interstitial edema. There is no definite pl eural effusion. There are no hilar masses. IMPRESSION: Pulmonary interstitial edema. This could be acute congestive heart failure. Also consider acute interstitial pneumonia.
[2020-02-11] MEDS: METOPROLOL SUCCINATE (ER) 100 MG TAB.ER.24H PO SCH (21:50)
[2020-02-11] MEDS: MONTELUKAST 10 MG TAB PO SCH (21:50)
--- NOTE | 2020-02-11 23:25 | PN ---
PROGRESS NOTE DATE OF SERVICE: 02/11/2020 REASON FOR FOLLOW UP: 1. Right lower extremity cellulitis. 2. Positive blood culture. INTERVAL HISTORY: Patient is currently afebrile. She is breathing comfortably. Denies having any chest pain. No shortness of breath or cough. No nausea. No abdominal pain or any worsening pain to the right lower extremity. PHYSICAL EXAMINATION: Blood pressure 108/76, pulse 100, temperature 97.4. She is 95% on 3 L nasal cannula. General description is an elderly female up in the bed in no distress. Respiratory system: Unlabored breathing, decreased breath sounds in the base, no wheeze. Heart S1, S2. Regular rate and rhythm. Abdomen soft. No tenderness. Legs currently wrapped up. No obvious drainage on the dressing. LABS: Hemoglobin 15.1, white count 6.9, creatinine 0.90. DIAGNOSTIC IMPRESSION AND PLAN: Patient with acute right lower extremity cellulitis, covered with cefazolin and vancomycin, to continue. Multiple positive blood cultures. Waiting for the final ID sensitivity. Vancomycin to continue. Blood culture repeat has been ordered which is currently pending. MMODL / IJN: [id number] /
[2020-02-12 03:34] VITALS: RESP 20; TEMP 97.7
[2020-02-12 07:23] LABS: HCT 53.3 % (34.0-46.0); HGB 16.9 gm/dL (11.4-16.0); MCH 29.6 pg (25.0-35.0); MCHC 31.7 g/dL (31.0-37.0); MCV 93.4 fL (80.0-100.0); Mean Platelet Volume 7.6; Platelet Count 289 k/uL (150-450); RBC 5.71 m/uL (3.80-5.40); RDW 14.8 % (11.5-15.5)
[2020-02-12 07:35] LABS: Calcium 8.4 mg/dL (8.4-10.2); Potassium 3.5 mmol/L (3.5-5.1)
[2020-02-12] MEDS: BUDESONIDE 0.5 MG/2 ML NEBU INHALATION SCH (08:22)
[2020-02-12] MEDS: FUROSEMIDE 10 MG/ML 4 ML VIAL IV SCH (09:39)
[2020-02-12] MEDS: DULoxetine HCL 30 MG CAPSULE.DR PO SCH (09:40)
[2020-02-12] MEDS: METOLAZONE 5 MG TAB PO SCH (09:40)
[2020-02-12] MEDS: CLOPIDOGREL 75 MG TAB PO SCH (09:40)
[2020-02-12] MEDS: PANTOPRAZOLE 40 MG TABLET PO SCH (09:41)
[2020-02-12] MEDS: TIMOLOL 0.5% OPHTH DROPS 5 ML BTL BOTH EYES SCH (09:47)
[2020-02-12] MEDS: SODIUM CHLORIDE 0.9% 1,000 ML IV SCH (10:35)
[2020-02-12 12:20] LABS: Lymphocytes # (M) 19.76 k/uL (1.0-4.8); Monocytes # (M) 0.78 k/uL (0-1.0); Neutrophils # (M) 5.46 k/uL (1.3-7.7); Neutrophils % (M) 21 %; Nucleated Red Blood Cells 0 /100 WBC (0-0); Total Cells Counted 100
[2020-02-12 13:07] VITALS: BP 131/72; PULSE 90
[2020-02-12] MEDS: VANCOMYCIN 1,750 MG in SODIUM CHLORIDE 0.9% 500 ML 500 ML IVPB SCH (13:08)
--- NOTE | 2020-02-12 16:11 | PN ---
PROGRESS NOTE DATE OF SERVICE: 02/12/2020 REASON FOR FOLLOWUP: 1. Right lower extremity cellulitis. 2. Positive blood culture, likely contamination. INTERVAL HISTORY: The patient is currently afebrile. The patient is breathing comfortably. Denies having any chest pain. No shortness of breath or cough. The right leg pain and discomfort has improved. PHYSICAL EXAMINATION: Blood pressure is 131/70 with a pulse of 90, temperature is 98. She is 96% on 3 L nasal cannula. General description is an elderly female in the bed in no distress. Respiratory system: Unlabored breathing, clear to auscultation anteriorly. Heart S1, S2. No regular rate and rhythm. Abdomen soft, no tenderness. Right leg swelling persists, redness has improved. LABS: Hemoglobin 16.8, white count 00002, creatinine 0.80. Blood culture with micrococcus only one bottle, repeat is negative. Chest x-ray with ( ). DIAGNOSTIC IMPRESSION AND PLAN: Patient admitted to the hospital with right lower extremity pain. This patient's CT was negative for any abscess collection. Elevated white cell count still concerning, however, the patient has been insisting on going home. Discharge antibiotic will be Keflex 500 mg p.o. t.i.d. for about 10 days along with Vasyl wrap and repeating a CBC in the outpatient setting. If still elevated will need further workup. Questions were answered. MMODL / IJN: [id number] /
--- NOTE | 2020-02-13 00:20 | DS ---
DISCHARGE SUMMARY DATE OF SERVICE: 02/12/2020. FINAL DIAGNOSES: 1. Acute severe pain of the right calf. 2. Bacteremia with micrococcus species noted. 3. New onset atrial fibrillation paroxysmal. 4. Peripheral vascular disease. 5. Increased WBC. 6. Cellulitis of the right leg. 7. History of asthma. 8. History of coronary artery disease. 9. History of gastroesophageal reflux disease. 10.Hearing difficulties. 11.Hypertension. 12.Hyperlipidemia. 13.History of chronic liver disease. 14.History of degenerative joint disease. 15.History of pneumonia. 16.History of sleep apnea. 17.History of CLL, stage I. 18.History of chronic hypoxic respiratory failure. 19.Sleep apnea. 20.History of tremors. 21.History of degenerative joint disease. 22.History of nephrolithiasis. 23.History of diverticular disease. 24.History of appendectomy. 25.History of back surgery. 26.History of coronary artery disease/stent. 27.History of claustrophobia. 28.Anxiety/depression. 29.History of nicotine dependence, continued, ongoing. 30.Obesity with body mass index of 41.7. 31.FULL CODE. HISTORY OF PRESENT ILLNESS: This 74-year-old woman with past medical history of multiple medical problems was admitted with significant swelling and pain of the right leg status post cellulitis. DVT was ruled out. Patient seen by multiple consultants. Medications were adjusted. Patient improved significantly. On exam, vitals are stable. Cardiovascular S1, S2. Abdomen soft, obese. Nervous system: No focal deficits. DISCHARGE ADVICE AND MEDICATION: 1. Diet is cardiac diet. 2. Activity limited until followup. 3. Follow up with Dr. Reid in 1-2 days. 4. Follow up with Cardiology as recommended. 5. Ecotrin 81 mg p.o. daily. 6. Atarax 25 mg p.o. 7. Benadryl 25 mg q.4 p.r.n. 8. Betoptic 1 drop both eyes. 9. Catapres 0.1 b.i.d. 10.Cozaar 50 mg p.o. b.i.d. 11.Cymbalta 30 mg b.i.d. 12.Nitrostat 0.4 sublingual p.r.n. 13.Plavix 75 mg q.a.m. 14.ProAir 1 dose q.6h p.r.n. 15.Pulmicort 0.5 b.i.d. 16.Singulair 10 mg q.h.s. 17.Toprol-XL 100 mg. 18.Xanax 0.5 b.i.d. 19.Keflex 500 mg q8h for 7 days. 20.Lasix 40 mg p.o. daily. 21.Norvasc 5 mg. 22.Xarelto 15 mg p.o. daily. 23.CBC, BMP with Dr. Reid. 24.Follow up with Infectious Disease as recommended. DISCHARGE DISPOSITION: The patient will be discharged in stable condition with guarded prognosis. Total time taken 35 minutes. MMODL / IJN: [id number] /
[2020-02-14] MEDS ORDERED: VANCOMYCIN TROUGH DUE 1 EACH MISC MISCELLANE ONE (11:00)
== END 2020-02-12 14:35 | disposition home or self-care (01) | DRG 603 ==
LOC: EC 06:33 → 6NMEDSUR 09:28 → 5NMEDONC 17:54
PROVIDERS: ADMIT Hospitalist; ATTEND Hospitalist
DX: L03.115 Cellulitis of right lower limb (principal); J96.11 Chronic respiratory failure with hypoxia; R78.81 Bacteremia; L97.319 Non-pressure chronic ulcer of right ankle with unspecified severity; L97.329 Non-pressure chronic ulcer of left ankle with unspecified severity; C91.10 Chronic lymphocytic leukemia of B-cell type not having achieved remission; I50.32 Chronic diastolic (congestive) heart failure; Z68.41 Body mass index [BMI] 40.0-44.9, adult; I27.20 Pulmonary hypertension, unspecified; I95.9 Hypotension, unspecified; B96.89 Other specified bacterial agents as the cause of diseases classified elsewhere; L03.116 Cellulitis of left lower limb; I73.9 Peripheral vascular disease, unspecified; E66.01 Morbid (severe) obesity due to excess calories; I11.0 Hypertensive heart disease with heart failure; I48.0 Paroxysmal atrial fibrillation; J44.9 Chronic obstructive pulmonary disease, unspecified; Z11.59 Encounter for screening for other viral diseases; K76.0 Fatty (change of) liver, not elsewhere classified; Z99.81 Dependence on supplemental oxygen; I25.10 Atherosclerotic heart disease of native coronary artery without angina pectoris; E78.5 Hyperlipidemia, unspecified; G47.33 Obstructive sleep apnea (adult) (pediatric); I07.1 Rheumatic tricuspid insufficiency; K76.9 Liver disease, unspecified; R25.1 Tremor, unspecified; K57.90 Diverticulosis of intestine, part unspecified, without perforation or abscess without bleeding; K44.9 Diaphragmatic hernia without obstruction or gangrene; K21.9 Gastro-esophageal reflux disease without esophagitis; G89.29 Other chronic pain; M54.9 Dorsalgia, unspecified; H40.9 Unspecified glaucoma; H93.13 Tinnitus, bilateral; F32.9 Major depressive disorder, single episode, unspecified; F41.9 Anxiety disorder, unspecified; H26.9 Unspecified cataract; M47.812 Spondylosis without myelopathy or radiculopathy, cervical region; M47.9 Spondylosis, unspecified; F17.200 Nicotine dependence, unspecified, uncomplicated; H91.90 Unspecified hearing loss, unspecified ear; Z71.6 Tobacco abuse counseling; Z91.19 Patient's noncompliance with other medical treatment and regimen; Z79.82 Long term (current) use of aspirin; Z79.02 Long term (current) use of antithrombotics/antiplatelets; Z79.51 Long term (current) use of inhaled steroids; Z79.899 Other long term (current) drug therapy; Z87.442 Personal history of urinary calculi; Z87.01 Personal history of pneumonia (recurrent); Z90.49 Acquired absence of other specified parts of digestive tract; Z86.69 Personal history of other diseases of the nervous system and sense organs; Z95.828 Presence of other vascular implants and grafts; Z95.5 Presence of coronary angioplasty implant and graft; Z90.710 Acquired absence of both cervix and uterus; Z87.39 Personal history of other diseases of the musculoskeletal system and connective tissue; Z98.890 Other specified postprocedural states; Z98.49 Cataract extraction status, unspecified eye; Z96.1 Presence of intraocular lens; Z88.1 Allergy status to other antibiotic agents; Z91.041 Radiographic dye allergy status; Z91.040 Latex allergy status; Z88.5 Allergy status to narcotic agent; Z88.8 Allergy status to other drugs, medicaments and biological substances; Z91.048 Other nonmedicinal substance allergy status; Z82.49 Family history of ischemic heart disease and other diseases of the circulatory system; Z80.9 Family history of malignant neoplasm, unspecified; Z83.2 Family history of diseases of the blood and blood-forming organs and certain disorders involving the immune mechanism; Z82.3 Family history of stroke
CPT/HCPCS: 36415; 71046; 80048; 80053; 81001; 82550; 83605; 83880; 85025; 85379; 85610; 85730; 87040; 93005; 93306; 94640; 94760; 96361; 96374; 96375; 96376; 99285

== ENCOUNTER → 2020-04-13 | Outpatient (CLI) | payer MEDICARE ==
[2020-04-13 17:04] LABS: African American GFR (CKD) 38.8 (60.0-200.0); Albumin 4.2 g/dL (3.80-4.90); Anion Gap 12.6 mmol/L (4.00-12.00); BUN/Creat Ratio 26.67 Ratio (12.00-20.00); Calcium 9.4 mg/dL (8.7-10.3); Carbon Dioxide 28.4 mmol/L (21.6-31.8); Non-African American GFR(CKD) 33.5 (60.0-200.0); Total Protein 6.8 g/dL (6.2-8.2)
[2020-04-13 17:12] LABS: T4, Free (Free Thyroxine) 1.2 ng/dL (0.80-1.80)
== END | disposition home or self-care (01) ==
LOC: LABWHC1 09:54
PROVIDERS: ATTEND Nurse Practitioner
DX: I48.91 Unspecified atrial fibrillation (principal); I10 Essential (primary) hypertension
CPT/HCPCS: 36415; 80048; 82040; 84155; 84439; 84443